=== PATIENT | male | born 1945 | race Caucasian/White ===

== ENCOUNTER → 2024-03-01 07:55 | Outpatient (CLI) | payer MEDICARE, OTHER, SELFPAY ==
--- NOTE | 2024-03-01 07:57 | DI.ECHO.S_ITS ---
[place] +---------+ [facility] : : [address] : : [place] : : [id number] : : Phone: [phone] Echocardiogram Report + + :Name: SAMIA DIOP Study Date: 03/01/2024 Height: 69 in : :Hospital ReadingLocation: Weight: 178 lb : : Gender: Male BSA: 2.0 m2 : :: 1945 Age: 78 yrs BP: 130/79 mmHg: :Reason For Study: AORTIC VALVE INSUFFICIENCY : :Ordering Physician: JUDY, : :[place] Performed By: Gregorio Keller : :Referring: [place] : + + Interpretation Summary 1) Normal left ventricular thickness and size with moderately reduced systolic function (EF 35-40%). 2) Mildly enlarged right ventricle with mildly reduced function. 3) No significant valvular abnormalities. 4) No prior Echo available for comparison. Procedure: A two-dimensional transthoracic echocardiogram with color flow and Doppler was performed. The study quality was technically adequate. There is no prior echocardiogram noted for this patient. The patient was in normal sinus rhythm during the exam. The heart rate ranged between 50-66 bpm during the study. Left Ventricle: The left ventricle is normal in size and wall thickness. The ejection fraction is estimated to be 35-40%. There is moderate global hypokinesis of the left ventricle. Right Ventricle: The right ventricle is mildly dilated. Right ventricular systolic function is mildly reduced. Atria: The left atrium is mildly dilated. Right atrial size is normal. The interatrial septum grossly appears intact with no obvious evidence for an atrial septal defect. Mitral Valve: The mitral valve is grossly normal. There is no mitral valve stenosis. There is no mitral regurgitation noted. Aortic Valve: The aortic valve is trileaflet. There is no aortic valve stenosis. There is trace aortic regurgitation. Tricuspid Valve: The tricuspid valve is not well visualized, but is grossly normal. There is no tricuspid stenosis. There is trace tricuspid regurgitation. Pulmonary artery pressures cannot be estimated because of the lack of a measurable TR jet velocity. Pulmonic Valve: The pulmonic valve is not well seen, but is grossly normal. There is no pulmonic valvular stenosis. There is mild pulmonic regurgitation. Great Vessels: The aortic root is normal size. The ascending aorta is at the upper limits of normal in size. The inferior vena cava was not visualized. Pericardium/ Pleura There is no pericardial effusion. There is no pleural effusion. MMode/2D Measurements & Calculations LVIDd: 5.4 cm LVOT diam: 2.3 cm LVIDs: 4.3 cm Ao root diam: 3.3 cm FS: 21.9 % asc Aorta Diam: 3.8 cm IVSd: 0.97 cm Ao Arch Diam (Prox Trans): 3.4 cm LVPWd: 0.85 cm LV leigh. diameter/BSA (cm/m^2): 2.8 LV sys. diameter/BSA (cm/m^2): 2.2 LA A2 area: 19.0 cm2 RA long axis: 4.9 cm LA A4 area: 18.0 cm2 RA area: 15.4 cm2 LA length (vol): 4.8 cm RA vol: 41.3 ml LA vol: 59.9 ml RA : 21.0 ml/m2 LA vol index: 30.5 ml/m2 RVD1 (basal): 4.3 cm RVD2 (mid): 3.4 cm Doppler Measurements & Calculations Ao V2 max: 121.2 cm/sec LVOT Max Braulio: 67.9 cm/sec Ao V2 mean: 91.0 cm/sec LV V1 max P.8 mmHg Ao max P.9 mmHg LV V1 VTI: 16.3 cm Ao mean P.6 mmHg ALEXIS(I,D): 2.2 cm2 Ao V2 VTI: 30.8 cm ALEXIS(V,D): 2.3 cm2 sev ratio: 0.53 ALEXIS indexed to BSA (cm^2/m^2): 1.1 MV E max braulio: 56.9 cm/sec TR max braulio: 262.5 cm/sec MV A max braulio: 80.5 cm/sec TR max P.6 mmHg MV E/A: 0.71 PA V2 max: 114.8 cm/sec Med Peak E' Braulio: 4.4 cm/sec PA V2 mean: 66.8 cm/sec E/E' med: 12.8 PA mean P.1 mmHg Lat Peak E' Braulio: 6.7 cm/sec PA pr(Accel): 41.3 mmHg E/E' lat: 8.4 E/e' average: 10.6 MV dec time: 0.18 sec SV([facility]): 68.0 ml Reading Physician:08:52 PM
== END ==
LOC: ECHO 07:57
PROVIDERS: PCP Family Medicine; Referring Provider Internal Medicine Cardiovascular Disease; Visit Provider Internal Medicine Cardiovascular Disease
DX: I35.1 Nonrheumatic aortic (valve) insufficiency (principal); I37.1 Nonrheumatic pulmonary valve insufficiency
CPT/HCPCS: 93306

== ENCOUNTER → 2024-03-27 07:44 | Outpatient (CLI) | payer MEDICARE, OTHER, SELFPAY ==
[2024-03-27 08:38] LABS: Add Manual Diff / Slide Review NO; Basophils Absolute Auto 0 /uL (0-100); Basophils Percent Auto 0.6 % (0-2); Eosinophils Absolute Auto 200 /uL (0-450); Eosinophils Percent Auto 3.3 % (2-4); Hematocrit 44.4 % (41-53); Hemoglobin 14.8 g/dL (13.5-17.5); Lymphocytes Absolute Auto 1800 /uL (1100-4500); Lymphocytes Percent Auto 32.1 % (25-40); Mean Corpuscular HGB Conc 33.4 % (30-36); Mean Corpuscular Hemoglobin 29.6 PG (26-34); Mean Corpuscular Volume 88.7 fL (80-100); Monocytes Absolute Auto 400 /uL (0-900); Monocytes Percent Auto 6.7 % (3-14); Neutrophils Absolute Auto 3200 /uL (1500-7000); Neutrophils Percent Auto 57.3 % (50-75); Platelet Count 154 X10^3/uL (150-400); Red Cell Distribution Width 14.6 % (11.6-14.8); White Blood Cell Count 5.5 X10^3/uL (4.5-11.0)
[2024-03-27 09:17] LABS: Alanine Aminotransferase 19 IU/L (<50); Albumin Globulin Ratio 1.4 (1.0-2.8); Alkaline Phosphatase 103 U/L (38-126); Aspartate Aminotransferase 34 IU/L (17-59); Bilirubin Total 0.4 mg/dL (0.2-1.3); Blood Urea Nitrogen 15 mg/dL (9-20); Calcium 8.8 mg/dL (8.4-10.2); Carbon Dioxide 29 mmol/L (22-32); Chloride 106 mmol/L (98-107); Cholesterol 205 mg/dL (140-199); Estimated Glomerular Filt Rate > 60 mL/min (>60); Globulin 2.8 g/dL (1.7-4.1); Glucose 152 mg/dL (80-110); HDL Cholesterol 31 mg/dL (40-60); HEMOLYSIS < 15 (0-50); Potassium 4.3 mmol/L (3.4-5.1); Sodium 140 mmol/L (137-145); Total Protein 6.8 g/dL (6.3-8.2); Triglycerides 463 mg/dL (35-150)
[2024-03-28 16:12] LABS: Hep C Virus Ab w/Reflex Quant NEGATIVE s/c (NEGATIVE)
== END ==
PROVIDERS: PCP Family Medicine; Referring Provider Family Medicine; Visit Provider Family Medicine
DX: Z00.00 Encounter for general adult medical examination without abnormal findings (principal); I35.0 Nonrheumatic aortic (valve) stenosis; I48.19 Other persistent atrial fibrillation; E78.5 Hyperlipidemia, unspecified
CPT/HCPCS: 36415; 80053; 80061; 85025; 86803

== ENCOUNTER → 2024-04-16 17:04 | Outpatient (CLI) | payer MEDICARE, OTHER, SELFPAY ==
--- NOTE | 2024-04-16 17:05 | DI.MRI.S_ITS ---
PROCEDURE: MR SHOULDER RT WO CON INDICATIONS: PAIN IN RIGHT SHOULDER TECHNIQUE: Noncontrast oblique coronal T2 fast spin echo with fat saturation, oblique sagittal T1 spin echo and T2 fast spin echo with fat saturation, axial T1 spin echo and T2 fast spin echo with fat saturation through the shoulder. COMPARISON: None. FINDINGS: Image quality: Excellent. Rotator cuff: There is full-thickness rupture involving distal supraspinatus and infraspinatus at their insertions on humeral head with up to 5.3 cm medial retraction of torn tendon fibers to the level of glenoid. Low-grade partial-thickness tear involving superior fibers of distal subscapularis is seen. Sagittal images demonstrate mild to moderate supraspinatus muscle atrophy. Bones and bursae: Superior migration of humeral head in relation to glenoid is seen. Moderate acromioclavicular joint osteoarthritic changes are seen with joint space narrowing, subchondral sclerosis and downward osteophyte formation. Mild glenohumeral joint osteoarthritic changes also seen. There is moderate amount of joint effusion and subacromial subdeltoid bursal fluid, no loose bodies. Capsule and soft tissues: Signal abnormality and fraying of superior glenoid labrum is seen suggestive of superior labral tear. The long head of the biceps tendon appears thickened. The rotator interval appears normal, without fibrosis. The coracohumeral ligament is normal in thickness. IMPRESSION: 1. Ruptured supraspinatus and infraspinatus tendons at their insertions on greater tuberosity with up to 5.3 cm medial retraction of torn tendon fibers to the level of glenoid. Low-grade partial-thickness tear involving superior fibers of distal subscapularis. Mild to moderate supraspinatus muscle atrophy. 2. Superior migration of humeral head. Moderate acromioclavicular joint osteoarthritis and mild glenohumeral joint osteoarthritis. Moderate amount of joint effusion and subacromial subdeltoid bursal fluid. No fracture or dislocation. No gross loose bodies. 3. Suggestion of extensive superior glenoid labral tear. 4. Proximal long head of biceps tendinosis. Dictated by: Eladio Trimble M.D. on 04/17/2024 at 10:41 Approved by: Eladio Trimble M.D. on 04/17/2024 at 10:49
== END ==
PROVIDERS: PCP Family Medicine; Referring Provider Orthopaedic Surgery; Visit Provider Orthopaedic Surgery
DX: M75.121 Complete rotator cuff tear or rupture of right shoulder, not specified as traumatic (principal); M25.511 Pain in right shoulder; M25.411 Effusion, right shoulder; M19.011 Primary osteoarthritis, right shoulder
CPT/HCPCS: 73221

== ENCOUNTER → 2024-05-10 07:48 | Outpatient (CLI) | payer MEDICARE, OTHER, SELFPAY ==
[2024-05-10 08:12] LABS: Add Manual Diff / Slide Review NO; Basophils Absolute Auto 0 /uL (0-100); Basophils Percent Auto 0.5 % (0-2); Eosinophils Absolute Auto 300 /uL (0-450); Eosinophils Percent Auto 3.5 % (2-4); Hematocrit 45.7 % (41-53); Hemoglobin 15.5 g/dL (13.5-17.5); Lymphocytes Absolute Auto 2200 /uL (1100-4500); Lymphocytes Percent Auto 30.3 % (25-40); Mean Corpuscular HGB Conc 33.9 % (30-36); Mean Corpuscular Hemoglobin 30.4 PG (26-34); Mean Corpuscular Volume 89.9 fL (80-100); Monocytes Absolute Auto 600 /uL (0-900); Monocytes Percent Auto 8.8 % (3-14); Neutrophils Absolute Auto 4100 /uL (1500-7000); Neutrophils Percent Auto 56.9 % (50-75); Platelet Count 162 X10^3/uL (150-400); Red Blood Cell Count 5.08 X10^6/uL (4.5-5.9); White Blood Cell Count 7.2 X10^3/uL (4.5-11.0)
[2024-05-10 08:18] LABS: BUN Creatinine Ratio 16.2 (6-22); Blood Urea Nitrogen 18 mg/dL (9-20); Calcium 9.5 mg/dL (8.4-10.2); Carbon Dioxide 26 mmol/L (22-32); Chloride 104 mmol/L (98-107); Estimated Glomerular Filt Rate > 60 mL/min (>60); Glucose 112 mg/dL (80-110); HEMOLYSIS < 15 (0-50); Potassium 4.3 mmol/L (3.4-5.1); Sodium 141 mmol/L (137-145)
== END ==
LOC: LAB 07:50
PROVIDERS: PCP Family Medicine; Referring Provider Orthopaedic Surgery; Visit Provider Orthopaedic Surgery
DX: Z01.818 Encounter for other preprocedural examination (principal); Z01.812 Encounter for preprocedural laboratory examination
CPT/HCPCS: 36415; 80048; 85025

== ENCOUNTER → 2024-05-14 07:11 | Outpatient (CLI) | payer MEDICARE, OTHER, SELFPAY ==
--- NOTE | 2024-05-14 07:13 | DI.CT.S_ITS ---
PROCEDURE: CT UE RT WO CON INDICATIONS: PRIMARY OSTEOARTHRITIS RT SHOULDER TECHNIQUE: Noncontrast 0.75 mm thick sections acquired from the acromioclavicular joint to the inferior scapula, with coronal and sagittal reformatting. For radiation dose reduction, the following was used: automated exposure control, adjustment of mA and/or kV according to patient size. COMPARISON: [facility], MR, MR SHOULDER RT WO CON, 04/16/2024, 17:32. [facility], CR, XR SHOULDER 2+ VIEWS RIGHT, 02/19/2024, 13:44. FINDINGS: Image quality: Excellent. Bones: No acute osseous fracture. Humeral head is high riding with narrowing of the acromial humeral interval. Mild degenerative changes are seen at the acromioclavicular joint. Moderate acromioclavicular joint osteoarthrosis. No suspicious osseous lesion. Included ribs are intact. Degenerative changes are seen in the included spine. Soft tissues: Small glenohumeral effusion. Fluid is seen in the subacromial/subdeltoid bursa. Mild atrophy of the supraspinatus muscle. However, the tendons, ligaments, labrum, and articular cartilages are not well evaluated with CT. Included portions of the right lung are clear. IMPRESSION: 1. High riding humeral head with narrowing of the acromial humeral interval. Mild atrophy of the supraspinatus muscle. Findings are compatible with rotator cuff tendon tearing as seen on the prior MRI. 2. Mild glenohumeral osteoarthrosis. 3. Moderate acromioclavicular osteoarthrosis. 4. Small glenohumeral effusion communicates with the subacromial/subdeltoid bursa. Approved by: Garcia Daily M.D. on 05/14/2024 at 11:20
== END ==
PROVIDERS: PCP Family Medicine; Referring Provider Orthopaedic Surgery; Visit Provider Orthopaedic Surgery
DX: M19.011 Primary osteoarthritis, right shoulder (principal); M25.411 Effusion, right shoulder
CPT/HCPCS: 73200

== ENCOUNTER → 2024-06-10 07:13 | Outpatient (CLI) | payer MEDICARE, OTHER, SELFPAY ==
[2024-06-10 08:38] LABS: Cholesterol 113 mg/dL (140-199); HDL Cholesterol 33 mg/dL (40-60); LDL Cholesterol Calculated 52 mg/dL (<100); Triglycerides 140 mg/dL (35-150)
== END ==
PROVIDERS: PCP Family Medicine; Referring Provider Internal Medicine Cardiovascular Disease; Visit Provider Internal Medicine Cardiovascular Disease
DX: Z00.00 Encounter for general adult medical examination without abnormal findings (principal)
CPT/HCPCS: 36415; 80061

== ENCOUNTER → 2024-06-15 09:03 | Outpatient (CLI) | payer MEDICARE, OTHER, SELFPAY ==
--- NOTE | 2024-06-15 | DI.ECHO.S_ITS ---
[place] +---------+ Hospital : : [address] : : [place] : : [id number] : : Phone: [phone] Echocardiogram Report + + :Name: SAMIA DIOP Study Date: 06/15/2024 Height: 69 in : :Hospital ReadingLocation: Weight: 177 lb : : Gender: Male BSA: 2.0 m2 : :: 1945 Age: 79 yrs BP: 107/70 mmHg: :Reason For Study: NONISCHEMIC CARDIOMYOPATHY : :Ordering Physician: JUDY, : :[place] Performed By: Gina Lorenzo : :Referring: [place] : + + Interpretation Summary 1) Normal left ventricular thickness and size with mildly reduced systolic function (EF 45-50%). 2) Mildly enlarged right ventricle with low normal function. 3) No significant valvular abnormalities. 4) Compared to the Echo done 03/01/2024, LVEF has improved from 35-40% to 45- 50% on this study. Procedure: A two-dimensional transthoracic echocardiogram with color flow and Doppler was performed. The study quality was technically adequate. Comparison is made with the echocardiogram of 03/01/2024. The patient was in sinus rhythm with heart rates between 50-62 bpm during the exam. Left Ventricle: The left ventricle is normal in size and wall thickness. The ejection fraction is estimated to be 45-50%. There is mild global hypokinesis of the left ventricle. Diastolic parameters suggest a relaxation abnormality of the left ventricle, consistent with probable normal filling pressures. Right Ventricle: The right ventricle is mildly dilated. Right ventricular systolic function is at the lower limits of normal. Atria: The left atrial size is normal. Right atrial size is normal. There is no Doppler evidence for an interatrial shunt. Mitral Valve: The mitral valve is normal in structure and function. There is trace mitral regurgitation. Aortic Valve: The aortic valve is trileaflet. The aortic valve opens well. There is no aortic valve stenosis. No aortic regurgitation is present. Tricuspid Valve: The tricuspid valve is normal in structure and function. There is mild tricuspid regurgitation. The right ventricular systolic pressure is estimated to be at least 28 mmHg based on an estimated right atrial pressure of 3 mm Hg. Pulmonic Valve: The pulmonic valve leaflets are thin and pliable; valve motion is normal. There is mild pulmonic regurgitation. Great Vessels: The aortic root is normal size. The dimensions of the ascending aorta are normal. The IVC is of normal diameter and collapses greater than 50% with a sniff. This suggests a low right atrial pressure of 3 mm Hg. Pericardium/ Pleura There is no pericardial effusion. There is no pleural effusion. MMode/2D Measurements & Calculations LVIDd: 5.5 cm LVOT diam: 2.2 cm LVIDs: 4.0 cm Ao root diam: 3.2 cm FS: 27.5 % asc Aorta Diam: 3.8 cm IVSd: 0.78 cm Ao Arch Diam (Prox Trans): 3.3 cm LVPWd: 0.64 cm LV leigh. diameter/BSA (cm/m^2): 2.8 LV sys. diameter/BSA (cm/m^2): 2.0 LA A2 area: 18.6 cm2 RA long axis: 4.6 cm LA A4 area: 13.8 cm2 RA area: 12.6 cm2 LA length (vol): 4.6 cm RA vol: 29.5 ml LA vol: 47.8 ml RA : 15.0 ml/m2 LA vol index: 24.4 ml/m2 IVC diam: 1.8 cm RVDd major: 3.8 cm RVD1 (basal): 4.3 cm TAPSE: 1.7 cm Doppler Measurements & Calculations Ao V2 max: 110.2 cm/sec LVOT Max Braulio: 61.6 cm/sec Ao V2 mean: 81.7 cm/sec LV V1 max P.5 mmHg Ao max P.9 mmHg LV V1 VTI: 14.5 cm Ao mean P.9 mmHg ALEXIS(I,D): 2.2 cm2 Ao V2 VTI: 25.5 cm ALEXIS(V,D): 2.2 cm2 sev ratio: 0.57 ALEXIS indexed to BSA (cm^2/m^2): 1.1 MV E max braulio: 56.2 cm/sec TR max braulio: 248.4 cm/sec MV A max braulio: 70.2 cm/sec TR max P.7 mmHg MV E/A: 0.80 PA V2 max: 104.9 cm/sec Med Peak E' Braulio: 4.4 cm/sec PA V2 mean: 62.1 cm/sec E/E' med: 12.8 PA mean P.8 mmHg Lat Peak E' Braulio: 6.4 cm/sec PA pr(Accel): 46.5 mmHg E/E' lat: 8.8 E/e' average: 10.8 MV dec time: 0.20 sec SV(LVOT): 56.8 ml Reading Physician:06:49 PM
== END ==
PROVIDERS: PCP Family Medicine; Referring Provider Internal Medicine Cardiovascular Disease; Visit Provider Internal Medicine Cardiovascular Disease
DX: I07.1 Rheumatic tricuspid insufficiency (principal); I42.8 Other cardiomyopathies
CPT/HCPCS: 93306

== ENCOUNTER 2024-07-04 06:09 | Day surgery (SDC) | payer MEDICARE, OTHER, SELFPAY ==
[2024-06-26 08:38] VITALS: BMI 26.6
[2024-07-04] VITALS (8 sets, daily range): BP systolic 103–125; BP diastolic 61–82; PULSE 69–79; RESP 12–17; TEMP 36.2–36.6; O2SAT 90–97; BMI 26.2
--- NOTE | 2024-07-04 06:00 | DI.RAD.S_ITS ---
PROCEDURE: XR SHOULDER RT 1V INDICATIONS: rt total shoulder TECHNIQUE: Single view of the shoulder were acquired. COMPARISON: None. FINDINGS: Bones: No fractures or dislocations. No suspicious bony lesions. Visualized ribs appear intact. Expected anatomic positioning of right total shoulder arthroplasty components. Soft tissues: No suspicious soft tissue calcifications. IMPRESSION: Immediate postoperative evaluation with expected positioning of right total shoulder arthroplasty components. Dictated by: Sandoval Jon M.D. on 07/04/2024 at 10:28 Approved by: Sandoval Jon M.D. on 07/04/2024 at 10:29
[2024-07-04] MEDS: ACETAMINOPHEN 325 MG TABLET 975 MG PO (07:18)
[2024-07-04] MEDS: LACTATED RINGERS 1,000 ML 42 ML IV (07:28)
--- NOTE | 2024-07-04 07:36 | SUR.OPER ---
Beach chair with Melia/Nancy shoulder positioner. Lower body on padded OR bed. Head in foam padded head cradle, secured with straps. Non-operative arm secured <90 degrees abduction. Pillow under knees. Safety belt at thigh. Cloth tape over blanket over lower legs.
--- NOTE | 2024-07-04 07:51 | PM.PREOP ---
Pre-operative Note Interval Note History & Physical reviewed/Exam performed by Physician: Yes Changes to H&P: No
--- NOTE | 2024-07-04 07:52 | SUR.PREOP ---
Block start time [0745] . Time out done at 0738. Monitoring initiated and maintained throughout procedure. Oxygen and medications given per anesthesiologist instructions. Patient remained stable throughout procedure, no adverse reactions noted. Block end time [0748].
[2024-07-04] MEDS: CEFAZOLIN 2 GM/100 ML PREMIX 100 ML IV (07:54)
[2024-07-04] MEDS: TRANEXAMIC ACID 1,000 MG VIAL 1000 MG INJ (08:32)
[2024-07-04] MEDS: BUPIVACAINE 0.25% (PF) 30 ML, EPINEPHrine 0.15 MG INJ (08:32)
--- NOTE | 2024-07-04 09:19 | PM.OP.1 ---
Operative Date/Time/Diagnoses Date of procedure: 07/04/24 Time of procedure: 09:19 Pre-op diagnosis: Right irrepairable rotator cuff tear Post-op diagnosis: same Procedure & Clinicians Procedure: Right reverse total shoulder arthroplasty Same procedure as scheduled: Yes Indications: Indications: This is a 79-year-old male who has a repairable right rotator cuff tear. Symptoms have been present for years, insidious onset. Patient has failed a reasonable attempt at conservative therapy. After extensive discussion in clinic, they wished to go forward with surgery. Risks and benefits were described including the risk of infection, bleeding, damage to internal structures including nerves. We also discussed the risk of failure of surgery and the need for revision surgery as well as the risk of anesthesia. The patient expressed understanding with these risks and wished to go forward with surgery. Surgeon: Srini Tao Bag Making Machine Tender: Isabel Garibay Anesthesia Type: General Operative Notes Findings: Findings: Osteoarthritis of the glenoid and humeral head as well as a defient rotator cuff as noted on preoperative imaging and under direct visualization Closure Type: primary Specimen(s): none sent Prosthetic devices, grafts, tissues, transplants, or devices: Tornier implants Base plate: 29 mm, full wedge Glenosphere: 39 mm Stem: Perform 3+ Poly: +0 retentive Estimated Blood Loss (mL): 100 Blood products transfused: none Procedure in detail: Patient was seen in the preoperative holding unit. The correct right shoulder was identified and marked with my initials. Again we discussed the risks and benefits of surgery and they wished to go forward with surgery. The patient was brought back to the operating room and placed supine on the operating table. Smooth endotracheal intubation was performed by anesthesia. All prominences were padded and they were placed into the beach chair position. Intravenous antibiotics were given. The right shoulder was then prepped with the standard sterile preparation and draping. A time-out was then performed in my initials were again identified on the correct shoulder. 1 g of IV tranexamic acid was given. A standard deltopectoral incision was made. Skin flaps were made. The cephalic vein was identified and retracted laterally. This was protected throughout the remainder of the case. Sharp dissection was made along the deltoid, subacromial and subcoracoid space to release adhesions. The conjoined tendon was identified and the axillary nerve was palpated and continuous using the tug test. It was protected throughout the remainder of the case. A brown retractor was placed underneath the deltoid muscle and a darach retractor underneath the conjoint tendon. The subscapularis muscle was ntoed to be intact. The anterior circumflex artery and associated veins on the lower border of the subscapularis were identified and tied off using 0-Vicryl. The biceps tendon was identified in the bicipital groove. This was released from its sheath, and taken from its origin on the glenoid and tied into the pectoralis tendon for a solid tenodesis. We then began a subscapularis peel. The subscapularis was tagged with an Ethibond suture. A 360 degree circumferential release of the subscapularis was performed with protection of the axillary nerve. The coracohumeral ligament was released at the base of the coracoid. The shoulder was then dislocated. Osteophytes were removed using combination of rongeur and osteotome. The rotator cuff was noted to be insufficient. An intramedullary guide was used set at version of 20?. Using an oscillating saw a conservative humeral head cut was made. Impaction reamers were reamed up to a size 3+ stem with a built-in angle 135?. A neck protector was placed. Attention was then turned to the glenoid. After retracting the humeral head posteriorly a circumferential release was performed of the capsule with protection of the axillary nerve. The labrum was then released starting at the biceps anchor and going around the rim a small amount of triceps was released from the inferior glenoid. A center guide pin was then placed using the guide, followed by Reamer. After adequate cartilage was removed the boss was reamed and the centeral hole was drilled and measured. The base plate was then implanted and screwed into place. The peripheral screws were then sequentially drilled, measured, and placed. A 39 glenosphere was then selected and screwed into place onto the base plate. Turning back to the humerus, the humeral head was delivered and trialed with a 0 concentric. The arm was taken through range of motion and this was felt to be stable. The trial was then removed and a dilute Betadine wash was then performed with 1 L of sterile saline. Before placing the final implant, drill holes were made in the bicipital groove for the subscapularis repair, and sutures were passed through the drill holes. The final stem was then impacted into the humerus. The shoulder was then reduced and again brought through range of motion and was felt to be stable. The subscapularis was then repaired using a modified racking hitch with nice loupes. The skin was closed with 2-0 vicryl and 3-0 Monocryl followed by Aquacel dressing. Patient was awoken from anesthesia and brought back to the postoperative recovery unit without issue. They were placed into a sling. Assisting participation: This operation could not have been safely performed (without compromising the technical results or length of the procedure) without the assistance of a skilled surgical assist. The surgical assist was medically necessary for proper positioning, retraction and manipulation of instruments, proper exposure, graft prep, and manipulation of tissue. Complications: none Post-operative Condition: stable Disposition: PACU Plan for aftercare: Postoperative instructions: Sling to remain on for 6 weeks. No external rotation past neutral for 6 weeks. Okay for the sling to come off for shower. Okay to shower over the Aquacel dressing. If any water gets underneath the dressing, remove the dressing. First postoperative visit in 2 weeks.
== END 2024-07-04 10:32 | disposition home or self-care (01) ==
PROVIDERS: PCP Family Medicine; Referring Provider Orthopaedic Surgery; Visit Provider Orthopaedic Surgery
PROC: (CPT 23472; principal; 2024-07-04 07:45)
DX: M19.011 Primary osteoarthritis, right shoulder (principal); G89.18 Other acute postprocedural pain; M25.711 Osteophyte, right shoulder
CPT/HCPCS: 23472; 64415; 73020; C1776; J0171; J0690; J1100; J2405; J2704; J3010

== ENCOUNTER 2024-07-05 03:04 | Observation (INO) | payer MEDICARE, OTHER, SELFPAY ==
[2024-07-05] VITALS (79 sets, daily range): BP systolic 81–123; BP diastolic 49–67; PULSE 51–108; RESP 9–31; TEMP 35.8; O2SAT 91–98
--- NOTE | 2024-07-05 03:06 | ED.GENADULT ---
HPI - General Adult <Kay Parson DO - Last Filed: 07/06/24 03:43> General Chief complaint: Recheck/Abnormal Lab/Rx Stated complaint: Pain management Time Seen by Provider: 07/05/24 03:06 Source: patient, EMS, RN notes reviewed and old records reviewed Mode of arrival: EMS Limitations: no limitations History of Present Illness HPI narrative: 79-year-old male history of atrial fibrillation on Xarelto, metoprolol with a history of cardiomyopathy who presents with complaint of right shoulder pain. Patient had total shoulder arthroplasty yesterday 07/04/2024 in the morning with Dr. Tao here at [facility]. Patient states afterwards pain was increasing he was taking [place] 1 tablet every 6 hours. Had 3 doses then took 1 tablet of oxycodone about 2 hours after his last tablet this was at approximately 1:00 a.m. today. Patient states he has not been taking anything else for pain with this medication. Patient states he did try the cooling machine and has not been helpful. Denies fevers or chills. Denies diaphoresis. He states he has pain right at the incision site itself as well as between the shoulder and elbow. Patient states he had some numbness and tingling in his thumb and 1st finger for about an hour to but that resolved on its own. He does not have any currently. He does not appreciate any new swelling of his arm. Denies any pain of his chest substernally or into his back. Denies any shortness of breath. Denies any nausea or vomiting. States movement and going over bumps in the ambulance was quite painful. Patient did have reported near syncopal episode at home. And was found to have a systolic blood pressure in the 90s at home as well. Patient states blood pressure is normally 120s systolic. States he is on Xarelto but stopped his medication 3 or 4 days prior to surgery he has not restarted it, he also takes metoprolol, tamsulosin and several other medications. Patient states he has had a prior umbilical hernia repair with mesh and prior fusion of his lower back. States no prior cardiac surgeries or interventions, no cardiac stents. States he had an allergy to Percocet many years ago where he got very twitchy but also states he had oxycodone earlier this evening without any issue. No known drug allergies otherwise. No regular tobacco, alcohol or recreational drugs. Dr. Trevino is his primary care physician. Dr. Tao is his orthopedic surgeon. Related Data Home Medications Medication Instructions Recorded Confirmed valacyclovir 1 gram tablet 1,000 mg PO BID PRN herpes 09/26/23 06/26/24 rivaroxaban 20 mg tablet (Xarelto) 10 mg PO BID 03/26/24 07/04/24 rosuvastatin 20 mg tablet 20 mg PO QPM 06/26/24 07/04/24 tamsulosin 0.4 mg capsule 0.4 mg PO QPM 06/26/24 07/04/24 Previous Rx's Medication Instructions Recorded omeprazole 20 mg capsule,delayed 20 mg PO DAILY #90 caps 09/26/23 release quetiapine 50 mg tablet 50 mg PO BEDTIME PRN sleep #90 tabs 09/26/23 metoprolol succinate 50 mg 50 mg PO DAILY #90 tabs 03/26/24 tablet,extended release 24 hr hydrocodone 5 mg-acetaminophen 325 1 tab PO Q6H PRN pain #30 tabs 07/04/24 mg tablet ondansetron 4 mg disintegrating 4 mg PO Q8H PRN nausea and 07/04/24 tablet vomiting #10 tabs Allergies Allergy/AdvReac Type Severity Reaction Status Date / Time No Known Drug Allergies Allergy Verified 07/04/24 06:45 Review of Systems <Kay Parson DO - Last Filed: 07/06/24 03:43> Review of Systems ROS Unobtainable: All systems reviewed & are unremarkable except as noted in HPI and below Patient History <DO Nimisha Miles Last Filed: 07/06/24 03:43> Medical History Paroxysmal A-fib Ejection fraction < 50% (06/15/24) POLST (Physician Orders for Life-Sustaining Treatment) Cardiomyopathy (06/15/24) Encounter for annual wellness exam in Medicare patient JAQUELINE (generalized anxiety disorder) GERD (gastroesophageal reflux disease) Insomnia Allergies (~1960) Mumps (~1950) Measles (~1953) Chicken pox (~1948) Tinnitus (~1980) Hearing loss (~1969) Kidney stones (~1981) Skin cancer (~2013) Surgical History Anesthesia History of spinal fusion (~2022) History of umbilical hernia repair (~2020) Family History Father Skin cancer Mother Stroke Brother Skin cancer Social History household members: spouse Smoking Status: Never smoker alcohol intake: current Smoking Status: Never smoker alcohol intake frequency: holidays/special occasions only Substance Use Type: does not use Exam <Kay Parson DO - Last Filed: 07/06/24 03:43> Narrative Exam Narrative: GENERAL: Alert and oriented x three, male in moderate distress. No diaphoresis. HEENT: Head normocephalic, atraumatic, EOMI, pupils reactive, face symmetric, moist mucous membranes NECK: Supple, full range of motion CARDIOVASCULAR: Regular rate and rhythm without murmurs, rubs or gallops. No JVD. No edema bilateral lower extremities. RESPIRATORY: Breath sounds equal bilaterally, no wheezes rales or rhonchi. ABDOMEN: Soft, nontender. Normoactive bowel sounds all 4 quadrants. No guarding or rebound, rigidity, no mass : No CVA tenderness EXTREMITIES: Patient's right arm is in brace, has 2+ radial pulses full range of motion of all 5 fingers, no obvious swelling of the hand or wrist. Cap refills less than 2 seconds in all 5 fingers with sensation to light touch in all 5 fingers., no clubbing or edema. Neurovascularly intact. Incisions NEUROLOGICAL: Cranial nerves II through XII grossly intact. Moving all extremities SKIN: Warm, dry, no petechiae, no rashes or lesions. Initial Vital Signs Initial Vital Signs: Vital Signs Pulse Rate 58 L 07/05/24 03:08 Blood Pressure 99/58 L 07/05/24 03:08 Pulse Oximetry 94 07/05/24 03:08 <Taylor Marroquin DO - Last Filed: 07/05/24 12:36> Initial Vital Signs Initial Vital Signs: Vital Signs Pulse Rate 58 L 07/05/24 03:08 Blood Pressure 99/58 L 07/05/24 03:08 Pulse Oximetry 94 07/05/24 03:08 Course <DO Nimisha Miles Last Filed: 07/06/24 03:43> Orders Ordered: Naloxone HCl (Naloxone 0.4 Mg/Ml Vial) 0.2 mg IV Q2MIN PRN PRN Reason: Opiate Reversal Discontinued Medications Hydromorphone HCl (Hydromorphone 1 Mg Inj) 0.5 mg IV NOW ONE Stop: 07/05/24 07:34 Last Admin: 07/05/24 09:39 Dose: Not Given Documented By: JACQUI Sodium Chloride (Normal Saline 0.9%) 1,000 mls @ 1,000 mls/hr IV BOLUS ONE Stop: 07/05/24 04:20 Last Infusion: 07/05/24 05:40 Dose: Infused Documented By: Admin: 07/05/24 03:40 Dose: 1,000 mls/hr Documented By: JABARI Acetaminophen (Ofirmev) 1,000 mg in 100 mls @ 400 mls/hr IV NOW ONE Stop: 07/05/24 06:45 Last Infusion: 07/05/24 07:56 Dose: Infused Documented By: Admin: 07/05/24 06:49 Dose: 400 mls/hr Documented By: DEBBY Sodium Chloride (Normal Saline 0.9%) 1,000 mls @ 1,000 mls/hr IV BOLUS ONE Stop: 07/05/24 09:41 Last Infusion: 07/05/24 10:41 Dose: Infused Documented By: Admin: 07/05/24 08:53 Dose: 1,000 mls/hr Documented By: JACQUI Ketorolac Tromethamine (Ketorolac 30 Mg/Ml Vial) 15 mg IV NOW ONE Stop: 07/05/24 03:22 Last Admin: 07/05/24 03:40 Dose: 15 mg Documented By: JABARI Lorazepam (Lorazepam 0.5 Mg Tablet) 0.5 mg PO NOW ONE Stop: 07/05/24 03:24 Last Admin: 07/05/24 03:40 Dose: 0.5 mg Documented By: JABARI Morphine Sulfate (Morphine 4 Mg/Ml Inj) 4 mg IV NOW ONE Stop: 07/05/24 04:15 Last Admin: 07/05/24 04:23 Dose: 4 mg Documented By: DEBBY Morphine Sulfate (Morphine 4 Mg/Ml Inj) 4 mg IV NOW ONE Stop: 07/05/24 04:52 Last Admin: 07/05/24 06:49 Dose: Not Given Documented By: HNG Vital Signs Vital signs: Vital Signs - 8 hr 07/05/24 05:00 07/05/24 05:00 07/05/24 05:30 Pulse Rate 70 Respiratory Rate 18 Blood Pressure 114/64 114/61 Pulse Oximetry 95 Oxygen Delivery Method Nasal Cannula Oxygen Flow Rate 2 07/05/24 05:30 07/05/24 06:00 07/05/24 06:03 Pulse Rate 77 85 86 Respiratory Rate Blood Pressure Pulse Oximetry 95 91 92 Oxygen Delivery Method Room Air Oxygen Flow Rate 07/05/24 06:03 07/05/24 06:30 07/05/24 06:31 Pulse Rate 81 Respiratory Rate Blood Pressure 92/52 L 87/60 L Pulse Oximetry 93 Oxygen Delivery Method Oxygen Flow Rate 07/05/24 06:31 07/05/24 06:48 07/05/24 07:00 Pulse Rate 79 75 Respiratory Rate 18 18 Blood Pressure 113/57 L Pulse Oximetry 92 91 Oxygen Delivery Method Oxygen Flow Rate 07/05/24 07:00 07/05/24 07:30 07/05/24 07:30 Pulse Rate 89 Respiratory Rate Blood Pressure 103/55 L 110/65 Pulse Oximetry 93 Oxygen Delivery Method Nasal Cannula Oxygen Flow Rate 1 07/05/24 08:00 07/05/24 08:00 07/05/24 08:02 Pulse Rate 71 65 Respiratory Rate Blood Pressure 89/54 L Pulse Oximetry 95 95 Oxygen Delivery Method Nasal Cannula Nasal Cannula Oxygen Flow Rate 1 1 07/05/24 08:02 07/05/24 08:11 07/05/24 08:11 Pulse Rate 78 Respiratory Rate Blood Pressure 81/49 L 94/51 L Pulse Oximetry 97 Oxygen Delivery Method Nasal Cannula Oxygen Flow Rate 1 07/05/24 08:20 07/05/24 08:20 07/05/24 08:30 Pulse Rate 74 Respiratory Rate Blood Pressure 91/54 L 86/52 L Pulse Oximetry 95 Oxygen Delivery Method Nasal Cannula Oxygen Flow Rate 1 07/05/24 08:30 07/05/24 08:40 07/05/24 08:40 Pulse Rate 68 68 Respiratory Rate Blood Pressure 89/56 L Pulse Oximetry 96 97 Oxygen Delivery Method Nasal Cannula Oxygen Flow Rate 1 07/05/24 08:50 07/05/24 08:50 07/05/24 09:05 Pulse Rate 63 53 L Respiratory Rate Blood Pressure 95/58 L Pulse Oximetry 95 Oxygen Delivery Method Oxygen Flow Rate <Taylor Marroquin, DO - Last Filed: 07/05/24 12:36> Orders Ordered: Naloxone HCl (Naloxone 0.4 Mg/Ml Vial) 0.2 mg IV Q2MIN PRN PRN Reason: Opiate Reversal Discontinued Medications Hydromorphone HCl (Hydromorphone 1 Mg Inj) 0.5 mg IV NOW ONE Stop: 07/05/24 07:34 Last Admin: 07/05/24 09:39 Dose: Not Given Documented By: JACQUI Sodium Chloride (Normal Saline 0.9%) 1,000 mls @ 1,000 mls/hr IV BOLUS ONE Stop: 07/05/24 04:20 Last Infusion: 07/05/24 05:40 Dose: Infused Documented By: Admin: 07/05/24 03:40 Dose: 1,000 mls/hr Documented By: JABARI Acetaminophen (Ofirmev) 1,000 mg in 100 mls @ 400 mls/hr IV NOW ONE Stop: 07/05/24 06:45 Last Infusion: 07/05/24 07:56 Dose: Infused Documented By: Admin: 07/05/24 06:49 Dose: 400 mls/hr Documented By: DEBBY Sodium Chloride (Normal Saline 0.9%) 1,000 mls @ 1,000 mls/hr IV BOLUS ONE Stop: 07/05/24 09:41 Last Infusion: 07/05/24 10:41 Dose: Infused Documented By: Admin: 07/05/24 08:53 Dose: 1,000 mls/hr Documented By: JACQUI Ketorolac Tromethamine (Ketorolac 30 Mg/Ml Vial) 15 mg IV NOW ONE Stop: 07/05/24 03:22 Last Admin: 07/05/24 03:40 Dose: 15 mg Documented By: JABARI Lorazepam (Lorazepam 0.5 Mg Tablet) 0.5 mg PO NOW ONE Stop: 07/05/24 03:24 Last Admin: 07/05/24 03:40 Dose: 0.5 mg Documented By: JABARI Morphine Sulfate (Morphine 4 Mg/Ml Inj) 4 mg IV NOW ONE Stop: 07/05/24 04:15 Last Admin: 07/05/24 04:23 Dose: 4 mg Documented By: DEBBY Morphine Sulfate (Morphine 4 Mg/Ml Inj) 4 mg IV NOW ONE Stop: 07/05/24 04:52 Last Admin: 07/05/24 06:49 Dose: Not Given Documented By: HNG Vital Signs Vital signs: Vital Signs - 8 hr 07/05/24 05:00 07/05/24 05:00 07/05/24 05:30 Pulse Rate 70 Respiratory Rate 18 Blood Pressure 114/64 114/61 Pulse Oximetry 95 Oxygen Delivery Method Nasal Cannula Oxygen Flow Rate 2 07/05/24 05:30 07/05/24 06:00 07/05/24 06:03 Pulse Rate 77 85 86 Respiratory Rate Blood Pressure Pulse Oximetry 95 91 92 Oxygen Delivery Method Room Air Oxygen Flow Rate 07/05/24 06:03 07/05/24 06:30 07/05/24 06:31 Pulse Rate 81 Respiratory Rate Blood Pressure 92/52 L 87/60 L Pulse Oximetry 93 Oxygen Delivery Method Oxygen Flow Rate 07/05/24 06:31 07/05/24 06:48 07/05/24 07:00 Pulse Rate 79 75 Respiratory Rate 18 18 Blood Pressure 113/57 L Pulse Oximetry 92 91 Oxygen Delivery Method Oxygen Flow Rate 07/05/24 07:00 07/05/24 07:30 07/05/24 07:30 Pulse Rate 89 Respiratory Rate Blood Pressure 103/55 L 110/65 Pulse Oximetry 93 Oxygen Delivery Method Nasal Cannula Oxygen Flow Rate 1 07/05/24 08:00 07/05/24 08:00 07/05/24 08:02 Pulse Rate 71 65 Respiratory Rate Blood Pressure 89/54 L Pulse Oximetry 95 95 Oxygen Delivery Method Nasal Cannula Nasal Cannula Oxygen Flow Rate 1 1 07/05/24 08:02 07/05/24 08:11 07/05/24 08:11 Pulse Rate 78 Respiratory Rate Blood Pressure 81/49 L 94/51 L Pulse Oximetry 97 Oxygen Delivery Method Nasal Cannula Oxygen Flow Rate 1 07/05/24 08:20 07/05/24 08:20 07/05/24 08:30 Pulse Rate 74 Respiratory Rate Blood Pressure 91/54 L 86/52 L Pulse Oximetry 95 Oxygen Delivery Method Nasal Cannula Oxygen Flow Rate 1 07/05/24 08:30 07/05/24 08:40 07/05/24 08:40 Pulse Rate 68 68 Respiratory Rate Blood Pressure 89/56 L Pulse Oximetry 96 97 Oxygen Delivery Method Nasal Cannula Oxygen Flow Rate 1 07/05/24 08:50 07/05/24 08:50 07/05/24 09:05 Pulse Rate 63 53 L Respiratory Rate Blood Pressure 95/58 L Pulse Oximetry 95 Oxygen Delivery Method Oxygen Flow Rate Medical Decision Making <Kay Parson, - Last Filed: 07/06/24 03:43> Lab Data 07/05/24 03:30 07/05/24 03:30 Labs: Lab Results 07/05/24 07/05/24 Range/Units 03:30 05:45 WBC 15.9 H (4.5-11.0) X10^3/uL RBC 4.48 L (4.5-5.9) X10^6/uL Hgb 13.5 (13.5-17.5) g/dL Hct 40.5 L (41-53) % MCV 90.4 (80-100) fL MCH 30.2 (26-34) PG MCHC 33.4 (30-36) % RDW 13.7 (11.6-14.8) % Plt Count 166 (150-400) X10^3/uL Neut % (Auto) 83.9 H (50-75) % Lymph % (Auto) 7.5 L (25-40) % [place] % (Auto) 8.4 (3-14) % Eos % (Auto) 0.0 L (2-4) % Baso % (Auto) 0.2 (0-2) % Neut # (Auto) 98024 H (4482-1825) /uL Lymph # (Auto) 1200 (5393-3347) /uL [place] # (Auto) 1300 H (0-900) /uL Eos # (Auto) 0 (0-450) /uL Baso # (Auto) 0 (0-100) /uL Sodium 135 L (137-145) mmol/L Potassium 4.8 (3.4-5.1) mmol/L Chloride 103 (98-107) mmol/L Carbon Dioxide 23 (22-32) mmol/L BUN 20 (9-20) mg/dL Creatinine 1.24 (0.66-1.25) mg/dL Estimated GFR 59 L (>60) mL/min BUN/Creatinine Ratio 16.1 (6-22) Glucose 173 H (80-110) mg/dL Calcium 9.3 (8.4-10.2) mg/dL Total Bilirubin 0.7 (0.2-1.3) mg/dL AST 32 (17-59) IU/L ALT 25 (<50) IU/L Alkaline Phosphatase 59 (38-126) U/L Total Creatine Kinase 409 H (55-170) U/L Troponin I < 0.012 < 0.012 (0.01-0.034) ng/mL NT-Pro-B Natriuret Pep 291 (<450) pg/mL Total Protein 6.6 (6.3-8.2) g/dL Albumin 4.1 (3.5-5.0) g/dL Globulin 2.5 (1.7-4.1) g/dL Albumin/Globulin Ratio 1.6 (1.0-2.8) Lipase 38 (23-300) U/L ECG Data Attestation: I personally reviewed and interpreted this ECG as follows: Prior ECG tracings: not available for review Interpretation: Sinus bradycardia, left axis deviation rate of 57 [place] 152 QRS is 76 QTC 356, no acute ST elevation appreciated patient does have T-wave inversion in 1 and aVL. No priors for comparison. Repeat EKG shows sinus rhythm with sinus arrhythmia rate 82 [place] 164 QRS 80 QTC of 432, no acute ST elevation. T-waves are upright on repeat in AVF. MDM Narrative Medical decision making narrative: 79-year-old male presents with complaint of uncontrolled pain status post right shoulder surgery but also had a near syncopal episode states he did not have complete loss of consciousness but got very close was found to be hypotensive in the field with a systolic in the 90 range which was also present here. He has not tachycardic and likely has a blunting of his response from his metoprolol. Patient has had 1 tablet of [place] every 6 hours as well as an additional tablet of oxycodone at 1:00 a.m. last dose of [place] was at approximately 11:00 p.m. patient did receive fentanyl EN route with EMS but did not have any improvement. There maybe a component narcotics causing sudden patient's hypotension although he notes he has had decreased oral intake as well and maybe dehydrated. Labs show white count of 15.9, hemoglobin of 13.5 platelets of 166, sodium 135 potassium 4.8 chloride of 103 CO2 of 23 BUN 20 creatinine 1.24, glucose of 173, CK is 409, troponin is less than 0.012. BNP is 291. Repeat troponin EKG sinus bradycardia left axis deviation, T-wave inversion in 1 and aVL. No priors for comparison. Chest x-ray night read shows no acute cardiopulmonary abnormality identified. No evidence of airspace consolidation, no pneumothorax, no pleural effusion or congestive changes, cardiovascular is normal postsurgical findings of right shoulder arthroplasty. Multilevel spondylitic changes in the thoracic spine. Patient received fluids, Toradol, Ativan and on re-evaluation patient had minimal improvement. Does have ice packs on place as well. Blood pressure is improving and was given a dose of IV narcotic. 1652: Recheck patient states pain has a little bit improved. He appears much more comfortable. Blood pressures improved to systolic of 120s. His breathing is much improved, he was able to sleep a little bit. Patient does continue to have hiccups. He states he gets them very easily he had some water after receiving the pain medication and states that caused them to occur. Discussed his findings so far and plan for repeat troponin. Recheck 0630: Patient when he falls asleep drops down to 83% this maybe secondary to narcotics that he received was not hypoxic while awake. Discussed findings with patient thus far he still states he is pretty uncomfortable we will give a dose of IV Tylenol. 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 Patient signed out to Dr. Marroquin while awaiting imaging. <Taylor Marroquin, DO - Last Filed: 07/05/24 12:36> Lab Data Labs: Lab Results 07/05/24 07/05/24 Range/Units 03:30 05:45 WBC 15.9 H (4.5-11.0) X10^3/uL RBC 4.48 L (4.5-5.9) X10^6/uL Hgb 13.5 (13.5-17.5) g/dL Hct 40.5 L (41-53) % MCV 90.4 (80-100) fL MCH 30.2 (26-34) PG MCHC 33.4 (30-36) % RDW 13.7 (11.6-14.8) % Plt Count 166 (150-400) X10^3/uL Neut % (Auto) 83.9 H (50-75) % Lymph % (Auto) 7.5 L (25-40) % [place] % (Auto) 8.4 (3-14) % Eos % (Auto) 0.0 L (2-4) % Baso % (Auto) 0.2 (0-2) % Neut # (Auto) 45910 H (8931-0284) /uL Lymph # (Auto) 1200 (0626-9646) /uL [place] # (Auto) 1300 H (0-900) /uL Eos # (Auto) 0 (0-450) /uL Baso # (Auto) 0 (0-100) /uL Sodium 135 L (137-145) mmol/L Potassium 4.8 (3.4-5.1) mmol/L Chloride 103 (98-107) mmol/L Carbon Dioxide 23 (22-32) mmol/L BUN 20 (9-20) mg/dL Creatinine 1.24 (0.66-1.25) mg/dL Estimated GFR 59 L (>60) mL/min BUN/Creatinine Ratio 16.1 (6-22) Glucose 173 H (80-110) mg/dL Calcium 9.3 (8.4-10.2) mg/dL Total Bilirubin 0.7 (0.2-1.3) mg/dL AST 32 (17-59) IU/L ALT 25 (<50) IU/L Alkaline Phosphatase 59 (38-126) U/L Total Creatine Kinase 409 H (55-170) U/L Troponin I < 0.012 < 0.012 (0.01-0.034) ng/mL NT-Pro-B Natriuret Pep 291 (<450) pg/mL Total Protein 6.6 (6.3-8.2) g/dL Albumin 4.1 (3.5-5.0) g/dL Globulin 2.5 (1.7-4.1) g/dL Albumin/Globulin Ratio 1.6 (1.0-2.8) Lipase 38 (23-300) U/L Imaging Data CT scan - chest: Radiologist's Impression: PROCEDURE: CT ANGIO CHEST PE PROTOCOL INDICATIONS: hypoxia, s/p shoulder surgery TECHNIQUE: After the administration of intravenous contrast, 2 mm thick sections acquired from the pulmonary apices to the posterior costophrenic angles. 3-dimensional maximum intensity projection (MIP) coronal and sagittal reformats were then acquired through the thorax. For radiation dose reduction, the following was used: automated exposure control, adjustment of mA and/or kV according to patient size. COMPARISON: None. FINDINGS: Image quality: Portions of the chest are suboptimally evaluated secondary to metallic streak artifact from shoulder arthroplasty. Pulmonary arteries: Pulmonary arteries are normal in size, and demonstrate no intraluminal filling defects to suggest central pulmonary embolism. Lower Neck: No enlarged lymph nodes. Thyroid: No thyroid nodules which require sonographic follow up, per consensus guidelines. Axillae: No enlarged lymph nodes. Chest Wall: Soft tissue air and fluid are present surrounding the right shoulder consistent with recent arthroplasty. Bones: Unremarkable. Lungs and Pleura: No pneumothorax or pleural effusions. Atelectasis is present within the bases. Heart: Heart size is normal. No pericardial effusion. Thoracic Vessels: No aortic aneurysm. Mediastinum and [place]: No enlarged lymph nodes. Esophagus: Esophagus is dilated and fluid-filled through the mid and inferior portion. Moderate hiatal hernia. Upper Abdomen: Visualized upper abdomen solid organs and bowel loops appear normal. IMPRESSION: No pulmonary embolus. Postsurgical changes in the right shoulder. Dilated fluid-filled esophagus. Recommend follow-up to document resolution exclude presence of underlying mass. The above findings are concordant with preliminary report. Dictated by: Pretty Garibay M.D. on 07/05/2024 at 8:30 MDM Narrative Medical decision making narrative: 79-year-old male presents with complaint of uncontrolled pain status post right shoulder surgery but also had a near syncopal episode states he did not have complete loss of consciousness but got very close was found to be hypotensive in the field with a systolic in the 90 range which was also present here. He has not tachycardic and likely has a blunting of his response from his metoprolol. Patient has had 1 tablet of [place] every 6 hours as well as an additional tablet of oxycodone at 1:00 a.m. last dose of [place] was at approximately 11:00 p.m. patient did receive fentanyl EN route with EMS but did not have any improvement. There maybe a component narcotics causing sudden patient's hypotension although he notes he has had decreased oral intake as well and maybe dehydrated. Labs show white count of 15.9, hemoglobin of 13.5 platelets of 166, sodium 135 potassium 4.8 chloride of 103 CO2 of 23 BUN 20 creatinine 1.24, glucose of 173, CK is 409, troponin is less than 0.012. BNP is 291. Repeat troponin EKG sinus bradycardia left axis deviation, T-wave inversion in 1 and aVL. No priors for comparison. Chest x-ray night read shows no acute cardiopulmonary abnormality identified. No evidence of airspace consolidation, no pneumothorax, no pleural effusion or congestive changes, cardiovascular is normal postsurgical findings of right shoulder arthroplasty. Multilevel spondylitic changes in the thoracic spine. Patient received fluids, Toradol, Ativan and on re-evaluation patient had minimal improvement. Does have ice packs on place as well. Blood pressure is improving and was given a dose of IV narcotic. 165: Recheck patient states pain has a little bit improved. He appears much more comfortable. Blood pressures improved to systolic of 120s. His breathing is much improved, he was able to sleep a little bit. Patient does continue to have hiccups. He states he gets them very easily he had some water after receiving the pain medication and states that caused them to occur. Discussed his findings so far and plan for repeat troponin. Recheck 0630: Patient when he falls asleep drops down to 83% this maybe secondary to narcotics that he received was not hypoxic while awake. Discussed findings with patient thus far he still states he is pretty uncomfortable we will give a dose of IV Tylenol. 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 Patient signed out to Dr. Marroquin while awaiting imaging. Dr. Marroquin-patient signed out to me by Dr. Parson. I have seen evaluated patient myself. He is status post total shoulder surgery. He has been noted to be hypotensive and hypoxic here in the emergency department with increased shoulder pain. Initially thought that hypoxia secondary to narcotics however CT angio is now pending. Patient is still complaining of pain. He is received Tylenol Toradol and 2 doses of 4 mg of morphine. He states the morphine is the only drug that helped and it only lasted for [address] angio negative for pulmonary embolism Patient became hypotensive without narcotic medication blood pressure dropped to 81/51. Confirmed x2. He was given another L of IV fluids. Patient ambulated to the restroom he got a little dizzy lightheaded did not pass out he said it lasted briefly. He now with sitting up eating breakfast feeling better with blood pressure of 94. Unclear what is causing his hypotension. He is mild leukocytosis of 15.9 but is afebrile seems too early for postop infection. Dr. Jones updated patient's symptoms test results agrees to observation Discharge Plan Departure Patient Disposition: Home Clinical Impression: Pain in right shoulder, S/p reverse total shoulder arthroplasty, Near syncope, Acute hypotension
--- NOTE | 2024-07-05 03:21 | DI.RAD.S_ITS ---
PROCEDURE: XR CHEST 1V INDICATIONS: near syncope, shoulder pain, s/p shoulder surgery TECHNIQUE: One view of the chest was acquired. COMPARISON: None. FINDINGS: Surgical changes and devices: Shoulder arthroplasty. Lungs and pleura: Lungs are clear. No pleural effusions or pneumothorax. Mediastinum: Mediastinal contours appear normal. Heart size is enlarged. Bones and chest wall: No suspicious bony lesions. Overlying soft tissues appear unremarkable. IMPRESSION: No acute pulmonary process. Dictated by: Pretty Garibay M.D. on 07/05/2024 at 8:35 Approved by: Pretty Garibay M.D. on 07/05/2024 at 8:36
--- NOTE | 2024-07-05 03:21 | EKG_ITS ---
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
[2024-07-05] MEDS: SODIUM CHLORIDE 0.9% 1,000 ML 1000 ML IV ×2 (03:40→08:53)
[2024-07-05] MEDS: LORazepam 0.5 MG TABLET PO (03:40)
[2024-07-05] MEDS: KETOROLAC 30 MG/ML VIAL 15 MG IV (03:40)
[2024-07-05 03:46] LABS: Add Manual Diff / Slide Review NO; Basophils Absolute Auto 0 /uL (0-100); Basophils Percent Auto 0.2 % (0-2); Eosinophils Absolute Auto 0 /uL (0-450); Hematocrit 40.5 % (41-53); Hemoglobin 13.5 g/dL (13.5-17.5); Lymphocytes Absolute Auto 1200 /uL (1100-4500); Lymphocytes Percent Auto 7.5 % (25-40); Mean Corpuscular HGB Conc 33.4 % (30-36); Mean Corpuscular Hemoglobin 30.2 PG (26-34); Mean Corpuscular Volume 90.4 fL (80-100); Monocytes Absolute Auto 1300 /uL (0-900); Monocytes Percent Auto 8.4 % (3-14); Neutrophils Absolute Auto 13400 /uL (1500-7000); Neutrophils Percent Auto 83.9 % (50-75); Platelet Count 166 X10^3/uL (150-400); Red Blood Cell Count 4.48 X10^6/uL (4.5-5.9); Red Cell Distribution Width 13.7 % (11.6-14.8); White Blood Cell Count 15.9 X10^3/uL (4.5-11.0)
[2024-07-05 03:59] LABS: Alanine Aminotransferase 25 IU/L (<50); Albumin 4.1 g/dL (3.5-5.0); Albumin Globulin Ratio 1.6 (1.0-2.8); Alkaline Phosphatase 59 U/L (38-126); Aspartate Aminotransferase 32 IU/L (17-59); BUN Creatinine Ratio 16.1 (6-22); Bilirubin Total 0.7 mg/dL (0.2-1.3); Blood Urea Nitrogen 20 mg/dL (9-20); Calcium 9.3 mg/dL (8.4-10.2); Carbon Dioxide 23 mmol/L (22-32); Chloride 103 mmol/L (98-107); Creatine Kinase 409 U/L (55-170); Estimated Glomerular Filt Rate 59 mL/min (>60); Globulin 2.5 g/dL (1.7-4.1); Glucose 173 mg/dL (80-110); HEMOLYSIS < 15 (0-50); Lipase 38 U/L (23-300); Potassium 4.8 mmol/L (3.4-5.1); Sodium 135 mmol/L (137-145); Total Protein 6.6 g/dL (6.3-8.2)
[2024-07-05 04:12] LABS: NT-proBNP (BNP-Adult 18+) 291 pg/mL (<450)
[2024-07-05 04:14] LABS: Troponin I < 0.012 ng/mL (0.01-0.034)
[2024-07-05] MEDS: MORPHINE 4 MG/ML INJ IV (04:23)
--- NOTE | 2024-07-05 05:30 | EKG_ITS ---
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
[2024-07-05 06:16] LABS: Troponin I < 0.012 ng/mL (0.01-0.034)
--- NOTE | 2024-07-05 06:23 | DI.CT.S_ITS ---
PROCEDURE: CT ANGIO CHEST PE PROTOCOL INDICATIONS: hypoxia, s/p shoulder surgery TECHNIQUE: After the administration of intravenous contrast, 2 mm thick sections acquired from the pulmonary apices to the posterior costophrenic angles. 3-dimensional maximum intensity projection (MIP) coronal and sagittal reformats were then acquired through the thorax. For radiation dose reduction, the following was used: automated exposure control, adjustment of mA and/or kV according to patient size. COMPARISON: None. FINDINGS: Image quality: Portions of the chest are suboptimally evaluated secondary to metallic streak artifact from shoulder arthroplasty. Pulmonary arteries: Pulmonary arteries are normal in size, and demonstrate no intraluminal filling defects to suggest central pulmonary embolism. Lower Neck: No enlarged lymph nodes. Thyroid: No thyroid nodules which require sonographic follow up, per consensus guidelines. Axillae: No enlarged lymph nodes. Chest Wall: Soft tissue air and fluid are present surrounding the right shoulder consistent with recent arthroplasty. Bones: Unremarkable. Lungs and Pleura: No pneumothorax or pleural effusions. Atelectasis is present within the bases. Heart: Heart size is normal. No pericardial effusion. Thoracic Vessels: No aortic aneurysm. Mediastinum and [place]: No enlarged lymph nodes. Esophagus: Esophagus is dilated and fluid-filled through the mid and inferior portion. Moderate hiatal hernia. Upper Abdomen: Visualized upper abdomen solid organs and bowel loops appear normal. IMPRESSION: No pulmonary embolus. Postsurgical changes in the right shoulder. Dilated fluid-filled esophagus. Recommend follow-up to document resolution exclude presence of underlying mass. The above findings are concordant with preliminary report. Dictated by: Pretty Garibay M.D. on 07/05/2024 at 8:30 Approved by: Pretty Garibay M.D. on 07/05/2024 at 8:35
[2024-07-05] MEDS: ACETAMINOPHEN IV 1,000 MG/100 ML VIAL 400 MG IV (06:49)
--- NOTE | 2024-07-05 08:13 | PC.NURSE ---
Pt bp noted to be 80s/40s. MD made aware. MD stated to have pt try to eat/drink. pt given ensure and water.
--- NOTE | 2024-07-05 09:14 | EKG_ITS ---
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
--- NOTE | 2024-07-05 10:19 | PC.NURSE ---
Pain in right shoulder; low BP. Dizziness upon standing but able to ambulate with one person assist.
--- NOTE | 2024-07-05 14:45 | PC.NURSE ---
this RN offered patient a turkey sandwich and a cup of water, patient told this RN can I go home now. Patient is reporting no pain in shoulder I forgot all about that when asked about his shoulder pain.
--- NOTE | 2024-07-05 19:05 | PM.HP.1 ---
History of Present Illness History of Present Illness Date Patient Seen: 07/05/24 Time Patient Seen: 09:15 Date of Onset of Symptoms: 07/05/24 Chief complaint: Pain management Narrative: 79-year-old man under the primary care of Dr. Eliezer Trevino underwent right total shoulder replacement yesterday by Dr. Srini Tao and presented to the emergency department today with right shoulder pain. he reported a near syncopal episode at home and was found to have blood pressures in the 90s, was bradycardic into the 40s, with oxygen saturations in the upper 80s% range. He had been taking oxycodone postoperatively as prescribed, noting he did not tolerated previously due to becoming very twitchy, but seemed to tolerated otherwise. He was administered IV fluids and felt significantly better. Blood pressures improved into the 120 systolic range, heart rates into the 80s, oxygen saturations were in the high 90s% range after several hours of observation. He was interested in discharge home. See ER notes for further details [facility] Medical History Paroxysmal A-fib Ejection fraction < 50% (06/15/24) POLST (Physician Orders for Life-Sustaining Treatment) Cardiomyopathy (06/15/24) Encounter for annual wellness exam in Medicare patient JAQUELINE (generalized anxiety disorder) GERD (gastroesophageal reflux disease) Insomnia Allergies (~1959) Mumps (~1949) Measles (~1952) Chicken pox (~1947) Tinnitus (~1979) Hearing loss (~1969) Kidney stones (~1981) Skin cancer (~2013) Surgical History Anesthesia History of spinal fusion (~2022) History of umbilical hernia repair (~2020) Family History Father Skin cancer Mother Stroke Brother Skin cancer Social History household members: spouse Smoking Status: Never smoker alcohol intake: current Meds Home Medications and Allergies Home Medications Medication Instructions Recorded Confirmed Type omeprazole 20 mg capsule,delayed 20 mg PO DAILY #90 caps 09/26/23 07/04/24 Rx release quetiapine 50 mg tablet 50 mg PO BEDTIME PRN sleep #90 tabs 09/26/23 07/04/24 Rx valacyclovir 1 gram tablet 1,000 mg PO BID PRN herpes 09/26/23 06/26/24 History metoprolol succinate 50 mg 50 mg PO DAILY #90 tabs 03/26/24 07/04/24 Rx tablet,extended release 24 hr rivaroxaban 20 mg tablet (Xarelto) 10 mg PO BID 03/26/24 07/04/24 History rosuvastatin 20 mg tablet 20 mg PO QPM 06/26/24 07/04/24 History tamsulosin 0.4 mg capsule 0.4 mg PO QPM 06/26/24 07/04/24 History hydrocodone 5 mg-acetaminophen 325 1 tab PO Q6H PRN pain #30 tabs 07/04/24 Rx mg tablet ondansetron 4 mg disintegrating 4 mg PO Q8H PRN nausea and 07/04/24 Rx tablet vomiting #10 tabs Allergies Allergy/AdvReac Type Severity Reaction Status Date / Time No Known Drug Allergies Allergy Verified 07/04/24 06:45 Review of Systems Review of Systems ROS: Yes All systems reviewed with the patient and are negative except as otherwise documented Exam Vital Signs (past 8 hours): - 07/05/24 11:10 07/05/24 11:10 07/05/24 11:20 Pulse Rate 71 Respiratory Rate 10 L Blood Pressure 98/54 L 101/58 L Pulse Oximetry 93 Oxygen Delivery Method 07/05/24 11:20 07/05/24 11:30 07/05/24 11:30 Pulse Rate 73 81 Respiratory Rate 13 Blood Pressure 98/54 L Pulse Oximetry 93 95 Oxygen Delivery Method 07/05/24 11:40 07/05/24 11:40 07/05/24 11:50 Pulse Rate 66 Respiratory Rate 17 Blood Pressure 100/58 L 90/51 L Pulse Oximetry 96 Oxygen Delivery Method 07/05/24 11:53 07/05/24 11:53 07/05/24 12:00 Pulse Rate 84 67 Respiratory Rate 30 H 29 H Blood Pressure 94/51 L Pulse Oximetry 92 95 Oxygen Delivery Method 07/05/24 12:00 07/05/24 12:10 07/05/24 12:10 Pulse Rate 74 Respiratory Rate 17 Blood Pressure 100/57 L 95/50 L Pulse Oximetry 93 Oxygen Delivery Method 07/05/24 12:20 07/05/24 12:20 07/05/24 12:30 Pulse Rate 63 68 Respiratory Rate 12 9 L Blood Pressure 101/56 L Pulse Oximetry 92 93 Oxygen Delivery Method 07/05/24 12:30 07/05/24 12:40 07/05/24 12:40 Pulse Rate 70 Respiratory Rate 13 Blood Pressure 104/55 L 106/57 L Pulse Oximetry 94 Oxygen Delivery Method 07/05/24 12:50 07/05/24 12:50 07/05/24 13:00 Pulse Rate 68 Respiratory Rate 10 L Blood Pressure 100/55 L 100/57 L Pulse Oximetry 95 Oxygen Delivery Method Room Air 07/05/24 13:00 07/05/24 13:10 07/05/24 13:10 Pulse Rate 67 67 Respiratory Rate 9 L 10 L Blood Pressure 105/55 L Pulse Oximetry 96 95 Oxygen Delivery Method 07/05/24 13:20 07/05/24 13:20 07/05/24 13:30 Pulse Rate 73 Respiratory Rate 16 Blood Pressure 105/57 L 102/56 L Pulse Oximetry 94 Oxygen Delivery Method 07/05/24 13:30 07/05/24 13:45 07/05/24 13:45 Pulse Rate 64 76 Respiratory Rate 16 9 L Blood Pressure 102/51 L Pulse Oximetry 95 95 Oxygen Delivery Method 07/05/24 13:50 07/05/24 13:50 07/05/24 14:00 Pulse Rate 62 Respiratory Rate 16 Blood Pressure 102/52 L 103/55 L Pulse Oximetry 97 Oxygen Delivery Method 07/05/24 14:00 07/05/24 14:10 07/05/24 14:10 Pulse Rate 68 71 Respiratory Rate 14 14 Blood Pressure 100/57 L Pulse Oximetry 93 92 Oxygen Delivery Method 07/05/24 14:20 07/05/24 14:20 07/05/24 14:30 Pulse Rate 70 Respiratory Rate 11 L Blood Pressure 100/55 L 98/54 L Pulse Oximetry 92 Oxygen Delivery Method 07/05/24 14:30 07/05/24 14:40 07/05/24 14:40 Pulse Rate 72 96 H Respiratory Rate 13 Blood Pressure 98/57 L Pulse Oximetry 94 97 Oxygen Delivery Method 07/05/24 14:50 07/05/24 14:50 07/05/24 15:00 Pulse Rate 87 Respiratory Rate 23 Blood Pressure 111/61 110/63 Pulse Oximetry 95 Oxygen Delivery Method 07/05/24 15:00 07/05/24 15:10 07/05/24 15:10 Pulse Rate 90 96 H Respiratory Rate 24 Blood Pressure 120/67 Pulse Oximetry 96 95 Oxygen Delivery Method 07/05/24 15:20 07/05/24 15:20 07/05/24 15:30 Pulse Rate 97 H Respiratory Rate Blood Pressure 114/58 L 114/58 L Pulse Oximetry 97 Oxygen Delivery Method 07/05/24 15:30 07/05/24 15:41 07/05/24 15:41 Pulse Rate 98 H 108 H Respiratory Rate 14 Blood Pressure 96/58 L Pulse Oximetry 95 93 Oxygen Delivery Method 07/05/24 15:50 07/05/24 15:50 07/05/24 16:00 Pulse Rate 96 H Respiratory Rate 20 Blood Pressure 100/62 107/63 Pulse Oximetry 95 Oxygen Delivery Method 07/05/24 16:00 07/05/24 16:10 07/05/24 16:10 Pulse Rate 88 85 Respiratory Rate 19 13 Blood Pressure 109/58 L Pulse Oximetry 94 94 Oxygen Delivery Method 07/05/24 16:20 07/05/24 16:20 07/05/24 16:30 Pulse Rate 83 Respiratory Rate 15 Blood Pressure 110/58 L 103/59 L Pulse Oximetry 93 Oxygen Delivery Method 07/05/24 16:30 07/05/24 16:39 07/05/24 16:40 Pulse Rate 82 82 Respiratory Rate 14 12 Blood Pressure 110/59 L Pulse Oximetry 93 91 Oxygen Delivery Method 07/05/24 16:40 07/05/24 16:50 07/05/24 16:50 Pulse Rate 82 82 Respiratory Rate 12 12 Blood Pressure 109/59 L Pulse Oximetry 91 92 Oxygen Delivery Method 07/05/24 17:00 07/05/24 17:00 07/05/24 17:10 Pulse Rate 88 Respiratory Rate 13 Blood Pressure 114/63 114/60 Pulse Oximetry 92 Oxygen Delivery Method 07/05/24 17:10 07/05/24 17:20 07/05/24 17:20 Pulse Rate 84 91 H Respiratory Rate 14 18 Blood Pressure 116/59 L Pulse Oximetry 93 95 Oxygen Delivery Method 07/05/24 17:30 07/05/24 17:30 07/05/24 17:40 Pulse Rate 89 102 H Respiratory Rate 15 18 Blood Pressure 114/60 Pulse Oximetry 93 93 Oxygen Delivery Method 07/05/24 17:40 07/05/24 17:47 07/05/24 17:47 Pulse Rate 99 H Respiratory Rate 18 Blood Pressure 111/59 L 114/64 Pulse Oximetry 95 Oxygen Delivery Method Oxygen Delivery Method Room Air Oxygen Flow Rate 1 Narrative Exam Narrative: GENERAL: This is a well-nourished, well-developed patient, in no apparent distress. HEAD: Atraumatic. Normocephalic. No temporal or scalp tenderness. EYES: Pupils equal round and reactive. Extraocular motions intact. No scleral icterus. No injection or drainage. ENT: Mucous membranes pink and moist. NECK: Trachea midline. No JVD, bruits or lymphadenopathy. Supple, nontender, no meningeal signs. CARDIOVASCULAR: Regular rate and rhythm without murmurs, gallops, or rubs. RESPIRATORY: Clear to auscultation. GASTROINTESTINAL: Abdomen soft, non-tender, nondistended. EXTREMITIES: No clubbing, cyanosis, or edema. MS: Right arm sling in place, no arm tenderness, distal neurovascular status intact. NEUROLOGIC: Alert, oriented, speech fluent, full upper and lower motor strength, no focal deficits evident. DERMATOLOGIC: No rashes or skin lesions. Objective ECG Impression: Sinus rhythm with PACs at 73 beats per minute, left axis deviation, voltage criteria for LVH, no ischemic changes. Imaging Chest x-ray: Radiologist's impression: No acute pulmonary process. CT scan - chest: Radiologist's impression: No pulmonary embolus. Postsurgical changes in the right shoulder. Dilated fluid-filled esophagus. Recommend follow-up to document resolution exclude presence of underlying mass. Echocardiogram 06/15/2024:: Radiologist's impression: 1) Normal left ventricular thickness and size with mildly reduced systolic function (EF 45-50%). 2) Mildly enlarged right ventricle with low normal function. 3) No significant valvular abnormalities. 4) Compared to the Echo done 03/01/2024, LVEF has improved from 35-40% to 45- 50% on this study. Labs 07/05/24 03:30 07/05/24 03:30 Labs: Laboratory Results - last 24 hr 07/05/24 07/05/24 03:30 05:45 WBC 15.9 H RBC 4.48 L Hgb 13.5 Hct 40.5 L MCV 90.4 MCH 30.2 MCHC 33.4 RDW 13.7 Plt Count 166 Neut % (Auto) 83.9 H Lymph % (Auto) 7.5 L [place] % (Auto) 8.4 Eos % (Auto) 0.0 L Baso % (Auto) 0.2 Neut # (Auto) 34893 H Lymph # (Auto) 1200 [place] # (Auto) 1300 H Eos # (Auto) 0 Baso # (Auto) 0 Sodium 135 L Potassium 4.8 Chloride 103 Carbon Dioxide 23 BUN 20 Creatinine 1.24 Estimated GFR 59 L BUN/Creatinine Ratio 16.1 Glucose 173 H Calcium 9.3 Total Bilirubin 0.7 AST 32 ALT 25 Alkaline Phosphatase 59 Total Creatine Kinase 409 H Troponin I < 0.012 < 0.012 NT-Pro-B Natriuret Pep 291 Total Protein 6.6 Albumin 4.1 Globulin 2.5 Albumin/Globulin Ratio 1.6 Lipase 38 Assessment & Plan Assessment & Plan narrative: 1. Postoperative hypotension, likely opioid related. No evidence of postoperative myocardial infarction, pulmonary embolism, infection or other worrisome process. He is feeling significantly better following hydration and states pain is completely resolved. He is interested in discharge home. No other issues arose. Recommend follow-up with primary care provider and orthopedist. 2. Status post right total shoulder arthroplasty. Management per Orthopedics. 3. History of atrial fibrillation. Currently in sinus rhythm. The patient is admitted to observation status over the course of the day and discharged home to continue his usual home medications, with outpatient follow-up through his primary care provider as needed and Orthopedics as planned. Time-Based Coding :: [TOTAL MINUTES] spent with patient and on the chart (including review of chart, obtaining history, exam, reviewing outside data, placing orders, documenting exam and treatment plan, and counseling patient) on [DATE]. PROFEE Charge Codes Initial inpatient/observation care: [id number]
== END 2024-07-05 18:04 | disposition home or self-care (01) ==
LOC: ED 07:10 → AC 09:07
PROVIDERS: Emergency Medicine; Admitting Provider Internal Medicine; Emergency Provider Emergency Medicine; PCP Family Medicine; Referring Provider Emergency Medicine; Visit Provider Internal Medicine
DX: I95.81 Postprocedural hypotension (principal); G89.18 Other acute postprocedural pain; Z96.611 Presence of right artificial shoulder joint; Z86.79 Personal history of other diseases of the circulatory system
CPT/HCPCS: 36415; 71045; 71275; 80053; 82550; 83690; 83880; 84484; 85025; 93005; 96361; 96365; 96375; 99285; G0378; J0136; J1171; J1885; J2270; Q9967

== ENCOUNTER 2024-07-07 09:33 | Emergency (ER) | payer MEDICARE, OTHER, SELFPAY ==
[2024-07-07] VITALS (7 sets, daily range): BP systolic 94–127; BP diastolic 53–73; PULSE 87–113; RESP 16–20; TEMP 36.6–37.1; O2SAT 95–100; BMI 26.2
--- NOTE | 2024-07-07 09:44 | DI.RAD.S_ITS ---
PROCEDURE: XR CHEST 1V INDICATIONS: chest pain TECHNIQUE: One view of the chest was acquired. COMPARISON: , CR, XR CHEST 1V, 07/05/2024, 3:28. FINDINGS: Surgical changes and devices: Right shoulder prosthesis Lungs and pleura: Elevated right hemidiaphragm. Blunting of both costophrenic angles. Bibasilar atelectasis Mediastinum: Mediastinal contours appear normal. Heart size is normal. Bones and chest wall: No suspicious bony lesions. Overlying soft tissues appear unremarkable. IMPRESSION: Small bibasilar pleural effusions with associated atelectasis. Approved by: Fady Siddiqi M.D. on 07/07/2024 at 10:22
[2024-07-07 10:19] LABS: Add Manual Diff / Slide Review NO; Basophils Absolute Auto 0 /uL (0-100); Basophils Percent Auto 0.4 % (0-2); Eosinophils Absolute Auto 0 /uL (0-450); Eosinophils Percent Auto 0.5 % (2-4); Hematocrit 30.1 % (41-53); Hemoglobin 10.2 g/dL (13.5-17.5); Lymphocytes Absolute Auto 1300 /uL (1100-4500); Mean Corpuscular Hemoglobin 31.1 PG (26-34); Mean Corpuscular Volume 91.5 fL (80-100); Monocytes Absolute Auto 800 /uL (0-900); Monocytes Percent Auto 8.6 % (3-14); Neutrophils Absolute Auto 7100 /uL (1500-7000); Neutrophils Percent Auto 76.5 % (50-75); Platelet Count 124 X10^3/uL (150-400); Red Cell Distribution Width 13.5 % (11.6-14.8); White Blood Cell Count 9.3 X10^3/uL (4.5-11.0)
[2024-07-07 10:26] LABS: Prothrombin Time 22.6 SECONDS (9.4-12.5)
[2024-07-07] MEDS: HYDROCODONE/ACET 5/325 TABLET 2 TAB PO (10:28)
--- NOTE | 2024-07-07 10:28 | ED.ARRPALP ---
HPI - Arrhythmia/Palpitations General Chief Complaint: Arrhythmia/Palpitations Stated Complaint: Returning, AFIB Time Seen by Provider: 07/07/24 09:36 Mode of arrival: Wheelchair History of Present Illness HPI narrative: Patient is a 79-year-old male history of paroxysmal atrial fibrillation currently takes Xarelto was recently taken off metoprolol after hypotension after shoulder surgery. He had a right total shoulder replacement on July 04. He had a near syncopal episode at home was brought to the ER where he was found to be persistently hypotensive. Require an overnight stay. Blood pressures improved he was told to hold metoprolol for his blood pressure to stabilize. This morning his has been taking his vitals regularly she noticed that his heart rate was elevated into the 130s and then down into the 80s. Patient is only complaining of right shoulder pain. He has no chest pain palpitations or shortness of breath. He has not really taken any pain medication for his right shoulder however here in the ED after movement and travel he is having some discomfort. off also reports that he has not yet had a bowel movement for 5 days. They tried senna at home without success Related Data Home Medications Medication Instructions Recorded Confirmed valacyclovir 1 gram tablet 1,000 mg PO BID PRN herpes 09/26/23 06/26/24 rivaroxaban 20 mg tablet (Xarelto) 10 mg PO BID 03/26/24 07/04/24 rosuvastatin 20 mg tablet 20 mg PO QPM 06/26/24 07/04/24 tamsulosin 0.4 mg capsule 0.4 mg PO QPM 06/26/24 07/04/24 Previous Rx's Medication Instructions Recorded omeprazole 20 mg capsule,delayed 20 mg PO DAILY #90 caps 09/26/23 release quetiapine 50 mg tablet 50 mg PO BEDTIME PRN sleep #90 tabs 09/26/23 metoprolol succinate 50 mg 50 mg PO DAILY #90 tabs 03/26/24 tablet,extended release 24 hr hydrocodone 5 mg-acetaminophen 325 1 tab PO Q6H PRN pain #30 tabs 07/04/24 mg tablet ondansetron 4 mg disintegrating 4 mg PO Q8H PRN nausea and 07/04/24 tablet vomiting #10 tabs Allergies Allergy/AdvReac Type Severity Reaction Status Date / Time No Known Drug Allergies Allergy Verified 07/04/24 06:45 Patient History Medical History Paroxysmal A-fib Ejection fraction < 50% (06/15/24) POLST (Physician Orders for Life-Sustaining Treatment) Cardiomyopathy (06/15/24) Encounter for annual wellness exam in Medicare patient JAQUELINE (generalized anxiety disorder) GERD (gastroesophageal reflux disease) Insomnia Allergies (~1960) Mumps (~1950) Measles (~1952) Chicken pox (~1947) Tinnitus (~1979) Hearing loss (~1969) Kidney stones (~1981) Skin cancer (~2013) Surgical History Anesthesia History of spinal fusion (~2022) History of umbilical hernia repair (~2020) Family History Father Skin cancer Mother Stroke Brother Skin cancer Social History household members: spouse Smoking Status: Never smoker alcohol intake: current Smoking Status: Never smoker alcohol intake frequency: holidays/special occasions only Substance Use Type: does not use Exam Initial Vital Signs Initial Vital Signs: Vital Signs Temperature 98.7 F 07/07/24 09:37 Pulse Rate 113 H 07/07/24 09:37 Respiratory Rate 20 07/07/24 09:37 Blood Pressure 108/59 L 07/07/24 09:37 Pulse Oximetry 95 07/07/24 09:37 Oxygen Delivery Method Room Air 07/07/24 09:37 GENERAL: Alert pleasant 79-year-old male and in [no acute] distress. HEENT: Head atraumatic,EOMI, pupils reactive, face symmetric, [moist] mucous membranes CARDIOVASCULAR: Regular rate and rhythm without murmurs, rubs or gallops. RESPIRATORY: Breath sounds equal bilaterally, no wheezes rales or rhonchi. ABDOMEN: Soft, nontender. Normoactive bowel sounds all 4 quadrants. No guarding or rebound. EXTREMITIES: Normal range of motion, no clubbing or edema. Neurovascularly intact Right shoulder in sling dressing intact distal radial pulse intact NEUROLOGICAL: Alert and oriented x4.Normal gait and speech. SKIN: Warm, dry, no laceration, no petechiae, no rashes or lesions. Course Orders Ordered: ED Orders 07/07/24 09:44 XR chest 1V Stat EKG-12 Lead Stat 07/07/24 10:10 Complete Blood Count AUTO DIFF Stat Comprehensive Metabolic Panel Stat Lipase Stat Magnesium Stat NT-proBNP (BNP-Adult 18+) Stat PTT Partial Thromboplastin [place] Stat Prothrombin Time INR Stat Troponin & CK Cardiac Panel Stat Discontinued Medications Hydrocodone Bitart/Acetaminophen (Hydrocodone/Acet 5/325 Tablet) 2 tab PO NOW ONE Stop: 07/07/24 10:22 Last Admin: 07/07/24 10:28 Dose: 2 tab Documented By: BEENA Vital Signs Vital signs: Vital Signs - 8 hr 07/07/24 09:37 07/07/24 10:00 07/07/24 10:30 Temperature 98.7 F Pulse Rate 113 H 95 H 87 Pulse Rate [Orthostatic Lying] Pulse Rate [Orthostatic Standing] Respiratory Rate 20 18 18 Blood Pressure 108/59 L 116/68 115/70 Blood Pressure [Orthostatic Lying] Blood Pressure [Orthostatic Standing] Pulse Oximetry 95 97 99 Oxygen Delivery Method Room Air Room Air Room Air 07/07/24 11:00 07/07/24 11:26 07/07/24 11:40 Temperature Pulse Rate 92 H 94 H Pulse Rate [Orthostatic Lying] 94 H Pulse Rate [Orthostatic Standing] 101 H Respiratory Rate 16 18 Blood Pressure 127/73 Blood Pressure [Orthostatic Lying] 95/55 L Blood Pressure [Orthostatic Standing] 94/53 L Pulse Oximetry 100 98 Oxygen Delivery Method Room Air 07/07/24 11:45 Temperature 97.8 F Pulse Rate 94 H Pulse Rate [Orthostatic Lying] Pulse Rate [Orthostatic Standing] Respiratory Rate 18 Blood Pressure 95/55 L Blood Pressure [Orthostatic Lying] Blood Pressure [Orthostatic Standing] Pulse Oximetry 96 Oxygen Delivery Method Room Air MDM - Arrhythmia/Palpitations Lab Data 07/07/24 10:10 07/07/24 10:10 Labs: Lab Results 07/07/24 Range/Units 10:10 WBC 9.3 (4.5-11.0) X10^3/uL RBC 3.30 L (4.5-5.9) X10^6/uL Hgb 10.2 L (13.5-17.5) g/dL Hct 30.1 L (41-53) % MCV 91.5 (80-100) fL MCH 31.1 (26-34) PG MCHC 34.0 (30-36) % RDW 13.5 (11.6-14.8) % Plt Count 124 L (150-400) X10^3/uL Neut % (Auto) 76.5 H (50-75) % Lymph % (Auto) 14.0 L (25-40) % [place] % (Auto) 8.6 (3-14) % Eos % (Auto) 0.5 L (2-4) % Baso % (Auto) 0.4 (0-2) % Neut # (Auto) 7100 H (7184-0602) /uL Lymph # (Auto) 1300 (4262-1470) /uL [place] # (Auto) 800 (0-900) /uL Eos # (Auto) 0 (0-450) /uL Baso # (Auto) 0 (0-100) /uL PT 22.6 H (9.4-12.5) SECONDS INR 2.0 H (0.9-1.3) APTT 36 (25.1-36.5) SECONDS Sodium 133 L (137-145) mmol/L Potassium 4.3 (3.4-5.1) mmol/L Chloride 104 (98-107) mmol/L Carbon Dioxide 26 (22-32) mmol/L BUN 24 H (9-20) mg/dL Creatinine 1.01 (0.66-1.25) mg/dL Estimated GFR > 60 (>60) mL/min BUN/Creatinine Ratio 23.8 H (6-22) Glucose 151 H (80-110) mg/dL Calcium 8.8 (8.4-10.2) mg/dL Magnesium 2.0 (1.6-2.3) mg/dL Total Bilirubin 0.4 (0.2-1.3) mg/dL AST 34 (17-59) IU/L ALT 27 (<50) IU/L Alkaline Phosphatase 68 (38-126) U/L Total Creatine Kinase 272 H (55-170) U/L Troponin I < 0.012 (0.01-0.034) ng/mL NT-Pro-B Natriuret Pep 299 (<450) pg/mL Total Protein 5.5 L (6.3-8.2) g/dL Albumin 3.1 L (3.5-5.0) g/dL Globulin 2.4 (1.7-4.1) g/dL Albumin/Globulin Ratio 1.3 (1.0-2.8) Lipase 36 (23-300) U/L Imaging Data Chest x-ray: Radiologist's Impresson: PROCEDURE: XR CHEST 1V INDICATIONS: chest pain TECHNIQUE: One view of the chest was acquired. COMPARISON: [facility], CR, XR CHEST 1V, 07/05/2024, 3:28. FINDINGS: Surgical changes and devices: Right shoulder prosthesis Lungs and pleura: Elevated right hemidiaphragm. Blunting of both costophrenic angles. Bibasilar atelectasis Mediastinum: Mediastinal contours appear normal. Heart size is normal. Bones and chest wall: No suspicious bony lesions. Overlying soft tissues appear unremarkable. IMPRESSION: Small bibasilar pleural effusions with associated atelectasis. Approved by: Fady Siddiqi M.D. on 07/07/2024 at 10:22 ECG Data Attestation: I personally reviewed and interpreted this ECG as follows: Prior ECG tracings: available for review Interpretation: Normal sinus rhythm rate 94 MS interval 146 QRS [address] changes no T-wave inversions MDM Narrative Medical decision making narrative: [facility] CC: Palpitations Complicating co-morbidities: Paroxysmal atrial fibrillation on Xarelto recent shoulder surgery recent hospital stay for hypotension Data collected from: Medical records reviewed: Recent admission Differential considered: Arrhythmia atrial fibrillation Exam documented above, pertinent findings include: Well-appearing heart regular no dyspnea peripheral pulses intact including right distal radius Lab Test results independently reviewed as above. Pertinent findings: WBC 9.3 hemoglobin 10.2 down slightly from 13.5 hematocrit 30.1, platelets 124 CMP sodium 133 potassium 4.3 chloride 104 carbon dioxide 26 BUN 24 creatinine 1.0 Bilirubin 0.4 AST 34 ALT 27 Troponin negative Independently reviewed EKG as above sinus rhythm no atrial fibrillation or arrhythmia Imaging studies independently reviewed: No acute cardiopulmonary process Treatments: Hydrocodone Re-evaluations: Patient's heart rate continues to be controlled no evidence of AFib. Possible he has had runs of AFib due to not being on metoprolol secondary to hypotension Discussion: 79-year-old male history of paroxysmal atrial fibrillation presenting today with irregular heart rate recorded at home. Patient is on Xarelto. He is currently in sinus rhythm heart rate in the 80s. Blood work has been reviewed overall reassuring. Chest x-ray similar to prior. Patient was not taking metoprolol secondary to hypotension postoperatively however he did take a dose this morning. Which likely helped his heart rate. He was complaining of pain here in the ED given home dose of hydrocodone. Heart rate remained stable here in the ED no evidence of AFib here. Blood pressure did decrease some decreased after [place]. He remains asymptomatic he is able to stand not dizzy or lightheaded. Discussed with to hold metoprolol if systolic is less than or equal to 100. Discharge Plan Departure Patient Disposition: Home Clinical Impression: Paroxysmal A-fib Instructions: DI for Atrial Fibrillation Activity Restrictions/Additional Instructions: *You have been diagnosed with paroxysmal atrial fibrillation *What to do: At this time continue your medications blood work here in the ED is overall reassuring *Continue to take medications as directed *Follow up with your primary care provider in 2-3 days or call [phone] Continue metoprolol as long is blood pressure is greater than 100/70, hold if blood pressures less than 100 *Return to ER if you should have palpitations dizziness lightheadedness passing [or] any new, worsening or concerning symptoms Prescriptions: No Action valacyclovir 1 gram tablet 1,000 mg PO BID PRN (Reason: herpes) omeprazole 20 mg capsule,delayed release(DR/EC) 20 mg PO DAILY Qty: 90 3RF quetiapine 50 mg tablet 50 mg PO BEDTIME PRN (Reason: sleep) Qty: 90 3RF Xarelto 20 mg tablet 10 mg PO BID metoprolol succinate 50 mg tablet extended release 24 hr 50 mg PO DAILY Qty: 90 3RF rosuvastatin 20 mg tablet 20 mg PO QPM tamsulosin 0.4 mg capsule 0.4 mg PO QPM ondansetron 4 mg tablet,disintegrating 4 mg PO Q8H PRN (Reason: nausea and vomiting) Qty: 10 0RF hydrocodone-acetaminophen 5-325 mg tablet 1 tab PO Q6H PRN (Reason: pain) Qty: 30 0RF Referrals: Eliezer Trevino DO [Primary Care Provider] - Stand Alone Forms: Patient Portal/API
[2024-07-07 10:29] LABS: PTT Partial Thromboplastin Tim 36 SECONDS (25.1-36.5)
[2024-07-07 10:30] LABS: Alanine Aminotransferase 27 IU/L (<50); Albumin 3.1 g/dL (3.5-5.0); Albumin Globulin Ratio 1.3 (1.0-2.8); Alkaline Phosphatase 68 U/L (38-126); Aspartate Aminotransferase 34 IU/L (17-59); BUN Creatinine Ratio 23.8 (6-22); Bilirubin Total 0.4 mg/dL (0.2-1.3); Blood Urea Nitrogen 24 mg/dL (9-20); Calcium 8.8 mg/dL (8.4-10.2); Carbon Dioxide 26 mmol/L (22-32); Chloride 104 mmol/L (98-107); Creatine Kinase 272 U/L (55-170); Estimated Glomerular Filt Rate > 60 mL/min (>60); Globulin 2.4 g/dL (1.7-4.1); Glucose 151 mg/dL (80-110); HEMOLYSIS < 15 (0-50); Lipase 36 U/L (23-300); Potassium 4.3 mmol/L (3.4-5.1); Sodium 133 mmol/L (137-145); Total Protein 5.5 g/dL (6.3-8.2)
[2024-07-07 10:42] LABS: NT-proBNP (BNP-Adult 18+) 299 pg/mL (<450); Troponin I < 0.012 ng/mL (0.01-0.034)
--- NOTE | 2024-07-07 10:49 | EKG_ITS ---
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
--- NOTE | 2024-07-07 11:40 | PC.NURSE ---
Orthostatic Vitals done for Discharge, patient denies dizziness, palpitations, steady gate, independent standing or ambulation. see Orthostatic VS documentation.
== END 2024-07-07 11:45 | disposition home or self-care (01) ==
PROVIDERS: Emergency Provider Emergency Medicine; PCP Family Medicine
DX: I48.0 Paroxysmal atrial fibrillation (principal); R07.9 Chest pain, unspecified; I49.8 Other specified cardiac arrhythmias; Z79.01 Long term (current) use of anticoagulants
CPT/HCPCS: 36415; 71045; 80053; 82550; 83690; 83735; 83880; 84484; 85025; 85610; 85730; 93005; 99284

== ENCOUNTER 2024-10-03 08:38 | Emergency (ER) | payer MEDICARE, OTHER, SELFPAY ==
[2024-10-03] VITALS (9 sets, daily range): BP systolic 104–117; BP diastolic 55–64; PULSE 54–69; RESP 12–24; TEMP 36.5; O2SAT 94–97; BMI 26.6
--- NOTE | 2024-10-03 08:48 | DI.RAD.S_ITS ---
PROCEDURE: XR CHEST 1V INDICATIONS: chest pain TECHNIQUE: One view of the chest was acquired. COMPARISON: [facility], CR, XR CHEST 1V, 07/07/2024, 9:54. FINDINGS: Right shoulder arthroplasty Lungs and pleura: Lungs are clear. No pleural effusions or pneumothorax. Mediastinum: Mediastinal contours appear normal. Heart size is normal. Bones and chest wall: No suspicious bony lesions. Overlying soft tissues appear unremarkable. IMPRESSION: No acute cardiopulmonary abnormality is seen. Dictated by: Ronaldo Snow M.D. on 10/03/2024 at 9:25 Approved by: Ronaldo Snow M.D. on 10/03/2024 at 9:25
--- NOTE | 2024-10-03 08:48 | EKG_ITS ---
[place] [id number] [place] [id number] Test Date: 2024-10-03 Pat Name: Umer Odom Department: 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
[2024-10-03 09:23] LABS: Add Manual Diff / Slide Review NO; Basophils Absolute Auto 0 /uL (0-100); Basophils Percent Auto 0.5 % (0-2); Eosinophils Absolute Auto 200 /uL (0-450); Eosinophils Percent Auto 2.9 % (2-4); Hemoglobin 13.8 g/dL (13.5-17.5); Lymphocytes Absolute Auto 1900 /uL (1100-4500); Lymphocytes Percent Auto 27.4 % (25-40); Mean Corpuscular Hemoglobin 27.6 PG (26-34); Mean Corpuscular Volume 86.1 fL (80-100); Monocytes Absolute Auto 600 /uL (0-900); Monocytes Percent Auto 8.4 % (3-14); Neutrophils Absolute Auto 4100 /uL (1500-7000); Neutrophils Percent Auto 60.8 % (50-75); Platelet Count 170 X10^3/uL (150-400); Red Cell Distribution Width 14.5 % (11.6-14.8); White Blood Cell Count 6.8 X10^3/uL (4.5-11.0)
[2024-10-03 09:31] LABS: INR 1.3 (0.9-1.3); Prothrombin Time 15.2 SECONDS (9.4-12.5)
[2024-10-03 09:34] LABS: PTT Partial Thromboplastin Tim 38 SECONDS (25.1-36.5)
[2024-10-03 09:35] LABS: Alanine Aminotransferase 25 IU/L (<50); Albumin 4.3 g/dL (3.5-5.0); Albumin Globulin Ratio 1.5 (1.0-2.8); Alkaline Phosphatase 67 U/L (38-126); Aspartate Aminotransferase 39 IU/L (17-59); BUN Creatinine Ratio 13.4 (6-22); Bilirubin Total 0.5 mg/dL (0.2-1.3); Blood Urea Nitrogen 15 mg/dL (9-20); Calcium 9.3 mg/dL (8.4-10.2); Carbon Dioxide 27 mmol/L (22-32); Chloride 106 mmol/L (98-107); Creatine Kinase 171 U/L (55-170); Estimated Glomerular Filt Rate > 60 mL/min (>60); Globulin 2.8 g/dL (1.7-4.1); Glucose 120 mg/dL (80-110); HEMOLYSIS 24 (0-50); Lipase 104 U/L (23-300); Potassium 4.3 mmol/L (3.4-5.1); Sodium 139 mmol/L (137-145); Total Protein 7.1 g/dL (6.3-8.2)
[2024-10-03 09:46] LABS: NT-proBNP (BNP-Adult 18+) 107 pg/mL (<450); Troponin I < 0.012 ng/mL (0.01-0.034)
--- NOTE | 2024-10-03 10:00 | ED.CHESTPAIN ---
HPI - Chest Pain General Chief Complaint: Chest Pain Stated Complaint: chest px pleurisy Time Seen by Provider: 10/03/24 10:00 Source: patient Mode of arrival: Ambulatory Limitations: no limitations History of Present Illness HPI narrative: Patient 79-year-old male history of atrial fibrillation on Eliquis hypertension presenting today with chest discomfort. He reports that over last couple of days every time he pushes up out of a chair he has chest pain all across his chest. It lasts for second it then goes away. He was no shortness of breath no chest pain with exertion no other symptoms. No shortness of breath no pain with breathing no lower extremity swelling. Related Data Home Medications Medication Instructions Recorded Confirmed rosuvastatin 20 mg tablet 20 mg PO QPM 06/26/24 09/23/24 apixaban 5 mg tablet (Eliquis) 5 mg PO BID 07/16/24 09/23/24 Previous Rx's Medication Instructions Recorded ondansetron 4 mg disintegrating 4 mg PO Q8H PRN nausea and 07/04/24 tablet vomiting #10 tabs metoprolol succinate 50 mg 50 mg PO DAILY blood pressure #90 09/03/24 tablet,extended release 24 hr tabs omeprazole 20 mg capsule,delayed 20 mg PO DAILY #90 caps 09/17/24 release quetiapine 50 mg tablet 50 mg PO BEDTIME PRN sleep #90 tabs 09/17/24 tamsulosin 0.4 mg capsule 0.4 mg PO QPM #90 caps 09/17/24 valacyclovir 1 gram tablet 2,000 mg (2 x 1 gram) PO BID 10/03/24 herpes #4 tabs Allergies Allergy/AdvReac Type Severity Reaction Status Date / Time No Known Drug Allergies Allergy Verified 09/23/24 10:55 Patient History Medical History Paroxysmal A-fib Ejection fraction < 50% (06/15/24) POLST (Physician Orders for Life-Sustaining Treatment) Cardiomyopathy (06/15/24) Encounter for annual wellness exam in Medicare patient JAQUELINE (generalized anxiety disorder) GERD (gastroesophageal reflux disease) Insomnia Allergies (~1960) Mumps (~1950) Measles (~1953) Chicken pox (~1948) Tinnitus (~1980) Hearing loss (~1970) Kidney stones (~1981) Skin cancer (~2013) Surgical History Anesthesia History of spinal fusion (~2022) History of umbilical hernia repair (~2020) Family History Father Skin cancer Mother Stroke Brother Skin cancer Social History household members: spouse Smoking Status: Never smoker alcohol intake: current Smoking Status: Never smoker alcohol intake frequency: holidays/special occasions only Exam Initial Vital Signs Initial Vital Signs: Vital Signs Temperature 97.7 F 10/03/24 08:42 Pulse Rate 61 10/03/24 08:42 Respiratory Rate 18 10/03/24 08:42 Blood Pressure 104/57 L 10/03/24 08:42 Pulse Oximetry 97 10/03/24 08:42 Oxygen Delivery Method Room Air 10/03/24 08:42 GENERAL: Alert well-appearing 79-year-old male and in no acute distress. HEENT: Head atraumatic,EOMI, pupils reactive, face symmetric, moist mucous membranes CARDIOVASCULAR: Regular rate and rhythm without murmurs, rubs or gallops. Pain not reproducible on palpation RESPIRATORY: Breath sounds equal bilaterally, no wheezes rales or rhonchi. ABDOMEN: Soft, nontender. Normoactive bowel sounds all 4 quadrants. No guarding or rebound. EXTREMITIES: Normal range of motion, no clubbing or edema. Neurovascularly intact NEUROLOGICAL: Alert and oriented x4.Normal gait and speech. Cranial nerves II through XII grossly intact. SKIN: Warm, dry, no laceration, no petechiae, no rashes or lesions. Course Orders Ordered: ED Orders 10/03/24 11:15 Trop I [Troponin I] Stat Discontinued Medications Aspirin (Aspirin 81 Mg Chew Tab) 324 mg PO NOW ONE Stop: 10/03/24 08:49 Last Admin: 10/03/24 10:30 Dose: Not Given Documented By: SPF Vital Signs Vital signs: Vital Signs - 8 hr 10/03/24 11:00 10/03/24 11:00 10/03/24 11:30 Pulse Rate 60 Respiratory Rate 24 Blood Pressure 112/61 108/60 Pulse Oximetry 97 Oxygen Delivery Method Room Air 10/03/24 11:30 10/03/24 12:00 10/03/24 12:00 Pulse Rate 54 L 59 L Respiratory Rate 20 20 Blood Pressure 111/64 Pulse Oximetry 97 96 Oxygen Delivery Method Room Air Room Air MDM - Chest Pain Lab Data 10/03/24 09:15 10/03/24 09:15 Labs: Lab Results 10/03/24 10/03/24 Range/Units 09:15 11:15 WBC 6.8 (4.5-11.0) X10^3/uL RBC 5.00 (4.5-5.9) X10^6/uL Hgb 13.8 (13.5-17.5) g/dL Hct 43.0 (41-53) % MCV 86.1 (80-100) fL MCH 27.6 (26-34) PG MCHC 32.0 (30-36) % RDW 14.5 (11.6-14.8) % Plt Count 170 (150-400) X10^3/uL Neut % (Auto) 60.8 (50-75) % Lymph % (Auto) 27.4 (25-40) % [place] % (Auto) 8.4 (3-14) % Eos % (Auto) 2.9 (2-4) % Baso % (Auto) 0.5 (0-2) % Neut # (Auto) 4100 (7763-4422) /uL Lymph # (Auto) 1900 (6519-4693) /uL [place] # (Auto) 600 (0-900) /uL Eos # (Auto) 200 (0-450) /uL Baso # (Auto) 0 (0-100) /uL PT 15.2 H (9.4-12.5) SECONDS INR 1.3 (0.9-1.3) APTT 38 H (25.1-36.5) SECONDS Sodium 139 (137-145) mmol/L Potassium 4.3 (3.4-5.1) mmol/L Chloride 106 (98-107) mmol/L Carbon Dioxide 27 (22-32) mmol/L BUN 15 (9-20) mg/dL Creatinine 1.12 (0.66-1.25) mg/dL Estimated GFR > 60 (>60) mL/min BUN/Creatinine Ratio 13.4 (6-22) Glucose 120 H (80-110) mg/dL Calcium 9.3 (8.4-10.2) mg/dL Magnesium 2.0 (1.6-2.3) mg/dL Total Bilirubin 0.5 (0.2-1.3) mg/dL AST 39 (17-59) IU/L ALT 25 (<50) IU/L Alkaline Phosphatase 67 (38-126) U/L Total Creatine Kinase 171 H (55-170) U/L Troponin I < 0.012 < 0.012 (0.01-0.034) ng/mL NT-Pro-B Natriuret Pep 107 (<450) pg/mL Total Protein 7.1 (6.3-8.2) g/dL Albumin 4.3 (3.5-5.0) g/dL Globulin 2.8 (1.7-4.1) g/dL Albumin/Globulin Ratio 1.5 (1.0-2.8) Lipase 104 (23-300) U/L Imaging Data Chest x-ray: Radiologist's Impression: PROCEDURE: XR CHEST 1V INDICATIONS: chest pain TECHNIQUE: One view of the chest was acquired. COMPARISON: [facility], , XR CHEST 1V, 07/07/2024, 9:54. FINDINGS: Right shoulder arthroplasty Lungs and pleura: Lungs are clear. No pleural effusions or pneumothorax. Mediastinum: Mediastinal contours appear normal. Heart size is normal. Bones and chest wall: No suspicious bony lesions. Overlying soft tissues appear unremarkable. IMPRESSION: No acute cardiopulmonary abnormality is seen. Dictated by: Ronaldo Snow M.D. on 10/03/2024 at 9:25 ECG Data Attestation: I personally reviewed and interpreted this ECG as follows: Prior ECG tracings: available for review Interpretation: Normal sinus rhythm rate 59 IA interval 148 QRS [address] changes no arrhythmia similar to previous EKGs MDM Narrative Medical decision making narrative: MDM CC: Chest pain Complicating co-morbidities: Atrial fibrillation on Eliquis Medical records reviewed: PCP note reviewed Differential considered: Musculoskeletal ACS pleurisy pneumonia Exam documented above, pertinent findings include: Pain not reproducible with palpation awake alert, regular rate and rhythm Lab Test results independently reviewed as above. Pertinent findings: Troponin negative x2 No anemia no leukocytosis, electrolytes stable no AGUILAR Independently reviewed EKG as above Sinus rhythm regular rate no ischemia Imaging studies independently reviewed: Chest x-ray no acute cardiopulmonary process Consultations: [ ] Treatments: None Re-evaluations: Patient remains chest pain-free in the emergency department Discussion: 79-year-old male presenting today with chest pain. It happens every time he pushes himself up from a chair. The seems to be musculoskeletal rather than cardiac. It is not reproducible lasting only a couple of seconds. Workup in the emergency department today is overall reassuring. He was 2- troponins EKGs does not show any ischemia chest x-ray is negative. He does not have any recurrence of pain in the ED because he remained sitting in the bed. At this time they feel comfortable going home Discharge Plan Departure Patient Disposition: Home Clinical Impression: Atypical chest pain Instructions: DI for Chest Pain Activity Restrictions/Additional Instructions: *You have been diagnosed with atypical chest pain *What to do: At this time I do think that your chest pain is likely related to muscle rather than heart May try heating pad or ice if pain continues you may also try taking Tylenol *Continue to take medications as directed *Follow up with your primary care provider in 2-3 days or call [phone] *Return to ER if you should have increasing chest pain shortness of breath weakness or any new, worsening or concerning symptoms Prescriptions: No Action omeprazole 20 mg capsule,delayed release(DR/EC) 20 mg PO DAILY Qty: 90 3RF quetiapine 50 mg tablet 50 mg PO BEDTIME PRN (Reason: sleep) Qty: 90 3RF tamsulosin 0.4 mg capsule 0.4 mg PO QPM Qty: 90 3RF valacyclovir 1 gram tablet 2,000 mg PO BID Qty: 4 11RF Rx Instructions: for 1 day Eliquis 5 mg tablet 5 mg PO BID metoprolol succinate 50 mg tablet extended release 24 hr 50 mg PO DAILY Qty: 90 3RF rosuvastatin 20 mg tablet 20 mg PO QPM ondansetron 4 mg tablet,disintegrating 4 mg PO Q8H PRN (Reason: nausea and vomiting) Qty: 10 0RF Referrals: Eliezer Trevino DO [Primary Care Provider] - Stand Alone Forms: Patient Portal/API/Survey
[2024-10-03 11:50] LABS: Troponin I < 0.012 ng/mL (0.01-0.034)
== END 2024-10-03 12:20 | disposition home or self-care (01) ==
PROVIDERS: Emergency Provider Emergency Medicine; PCP Family Medicine
DX: R07.89 Other chest pain (principal); Z79.01 Long term (current) use of anticoagulants; R00.1 Bradycardia, unspecified
CPT/HCPCS: 36415; 71045; 80053; 82550; 83690; 83735; 83880; 84484; 85025; 85610; 85730; 93005; 93010; 99283; 99284

== ENCOUNTER → 2025-04-01 11:46 | Outpatient (CLI) | payer MEDICARE, OTHER, SELFPAY ==
[2025-04-01 12:54] LABS: Blood Urea Nitrogen 17 mg/dL (9-20); Calcium 9.4 mg/dL (8.4-10.2); Carbon Dioxide 26 mmol/L (22-32); Chloride 106 mmol/L (98-107); Cholesterol 104 mg/dL (140-199); Estimated Glomerular Filt Rate > 60 mL/min (>60); Glucose 106 mg/dL (70-99); HDL Cholesterol 32 mg/dL (40-60); HEMOLYSIS < 15 (0-50); Potassium 4.4 mmol/L (3.4-5.1); Sodium 140 mmol/L (137-145); Triglycerides 170 mg/dL (35-150)
== END ==
PROVIDERS: PCP Family Medicine; Referring Provider Family Medicine; Visit Provider Family Medicine
DX: Z00.00 Encounter for general adult medical examination without abnormal findings (principal); I48.0 Paroxysmal atrial fibrillation; I42.9 Cardiomyopathy, unspecified
CPT/HCPCS: 36415; 80048; 80061

== ENCOUNTER → 2025-06-19 08:55 | Outpatient (CLI) | payer MEDICARE, OTHER, SELFPAY ==
[2025-06-19 10:37] LABS: Hematocrit 41.0 % (41-53); Hemoglobin 13.4 g/dL (13.5-17.5); Mean Corpuscular HGB Conc 32.6 % (30-36); Mean Corpuscular Hemoglobin 27.6 PG (26-34); Mean Corpuscular Volume 84.5 fL (80-100); Platelet Count 156 X10^3/uL (150-400)
[2025-06-19 11:09] LABS: Blood Urea Nitrogen 15 mg/dL (9-20); Calcium 9.3 mg/dL (8.4-10.2); Carbon Dioxide 28 mmol/L (22-32); Chloride 104 mmol/L (98-107); Cholesterol 117 mg/dL (140-199); Estimated Glomerular Filt Rate > 60 mL/min (>60); Glucose 108 mg/dL (70-99); HDL Cholesterol 35 mg/dL (40-60); HEMOLYSIS < 15 (0-50); Potassium 4.7 mmol/L (3.4-5.1); Sodium 139 mmol/L (137-145); Triglycerides 196 mg/dL (35-150)
== END ==
PROVIDERS: PCP Family Medicine; Referring Provider Internal Medicine Cardiovascular Disease; Visit Provider Internal Medicine Cardiovascular Disease
DX: E78.5 Hyperlipidemia, unspecified (principal); I42.8 Other cardiomyopathies; Z79.01 Long term (current) use of anticoagulants
CPT/HCPCS: 36415; 80048; 80061; 85027